=== PATIENT | male | born 1950 | race Caucasian/White ===

== ENCOUNTER 2019-01-20 09:30 | Outpatient (CLI) | payer MEDICARE, SELFPAY ==
--- NOTE | 2019-01-20 08:30 | DI.RAD_ITS ---
EXAM: XR ANKLE LT 2V INDICATION: ANKLE PAIN. COMPARISON: XR ANKLE RT 2V from 01/20/2019 TECHNIQUE: 2D digital imaging was performed. FINDINGS: There are moderately severe degenerative changes involving the mortise joint. There is no evidence o f a fracture or dislocation.
--- NOTE | 2019-01-20 08:30 | DI.RAD_ITS ---
EXAM: XR ANKLE RT 2V INDICATION: ANKLE PAIN. COMPARISON: LEFT ANKLE 2 VIEW from 02/25/2016 TECHNIQUE: 2D digital imaging was performed. FINDINGS: Mild degenerative changes involving the mortise joint is demonstrated. There is no evidence of a fra cture or dislocation.
== END 2019-01-20 09:50 ==
PROVIDERS: PCP Internal Medicine; Referring Provider Internal Medicine; Visit Provider Student in an Organized Health Care Education/Training Program
DX: M25.571 Pain in right ankle and joints of right foot (principal); M19.071 Primary osteoarthritis, right ankle and foot; M25.572 Pain in left ankle and joints of left foot; M19.072 Primary osteoarthritis, left ankle and foot; M24.271 Disorder of ligament, right ankle; M24.272 Disorder of ligament, left ankle
CPT/HCPCS: 99213; 73600; L1902

== ENCOUNTER → 2019-10-07 10:51 | Outpatient (BNVA) | payer MEDICARE, SELFPAY | PROVIDERS: PCP Internal Medicine; Referring Provider Internal Medicine; Visit Provider Surgery | DX: K58.9 Irritable bowel syndrome, unspecified (principal); Z12.11 Encounter for screening for malignant neoplasm of colon; K62.89 Other specified diseases of anus and rectum | CPT/HCPCS: 99202; 99214 ==

== ENCOUNTER 2019-10-12 01:25 | Outpatient (CLI) | payer MEDICARE, SELFPAY ==
[2019-10-12 08:16] LABS: Abs Immature Grans 0.01 k/cumm (0.0-0.09); Absolute Basophil Count 0.01 k/cumm (0.0-0.2); Absolute Eosinophil Count 0.14 k/cumm (0.0-0.7); Absolute Lymphocyte Count 2.31 k/cumm (1.2-3.4); Absolute Monocyte Count 0.58 k/cumm (0.11-0.7); Absolute Neutrophil Count 3.18 k/cumm (1.2-6.7); Basophils % 0.2; Eosinophils % 2.2; HCT 45.7 % (40.0-50.0); HGB 15.5 g/dL (13.5-17.5); Immature Grans % 0.2 %; Lymphocytes % 37.1; Mean Corp. HGB Concentration 33.9 g/dL (32.0-36.0); Mean Corpuscular Volume 88.4 fL (80-95); Mean Platelet Volume 10.9 fL (8.0-11.0); Monocytes % 9.3; Platelet Count 234 x1000/uL (130-400); RBC 5.17 m/cumm (4.50-6.00); RBC Distribution Width 13.3 % (11.8-14.1); White Blood Cell Count 6.23 k/cumm (4.4-10.8)
[2019-10-12 09:21] LABS: C-Reactive Protein 0.09 mg/dL (0.0-0.3)
== END 2019-10-12 01:45 ==
PROVIDERS: PCP Internal Medicine; Visit Provider Surgery
DX: K58.9 Irritable bowel syndrome, unspecified (principal); K62.89 Other specified diseases of anus and rectum; Z12.11 Encounter for screening for malignant neoplasm of colon
CPT/HCPCS: 36415; 85025; 86140

== ENCOUNTER 2019-11-07 06:11 | Day surgery (SDC) | payer MEDICARE, SELFPAY ==
[2019-11-07 06:21] VITALS: BP 135/78; PULSE 85; RESP 16; TEMP 36.6; O2SAT 100
[2019-11-07] MEDS: Lactated Ringers 1,000 ML 80 ML IV (06:49)
--- NOTE | 2019-11-07 07:39 | W.PM.HP.N ---
Date of service: 11/07/19 Time of Service: 07:39 Assessment and Plan Assessment and plan (1) Rectal pain: Status: Acute Assessment and plan: Patient is a longstanding history of irritable bowel syndrome. He is never had a colonoscopy before. He has no changes in bowel habits and changes in bowels. No bleeding. He is also having a significant amount of rectal pain is here today for colonoscopy. Cortisone acetate explained risk and benefits of procedure including bleeding infection perforation aspiration and complications of anesthesia he is stable for the procedure today. All questions were answered to patient satisfaction. (2) Elevated blood pressure reading without diagnosis of hypertension: Status: Acute (3) Irritable bowel syndrome: Status: Chronic (4) Colon cancer screening: Status: Acute History of Present Illness Consults Consult date: 11/07/19 Narrative: [facility] PATIENT NAME: MARTHA YOUSIF #: [id number] ADMITTING PROVIDER: Janie Brady #: [id number] PRIMARY CARE PROVIDER:SONIA VO MD DATE OF ADMIT: 10/07/19 : 1950 Assessment & Plan (1) Irritable bowel syndrome: Orders: C-Reactive Protein 10 Days Complete Blood Count w/Diff 10 Days (2) Colon cancer screening: Plan: Colonoscopy w/ MAC The patient will be scheduled by my office. The pt understands that they need to do a bowel prep and the importance of hydration during this. The patient understands there is a theoretical risk of renal failure. For healthy patients we use Gatorade/Miralax Prep. For anyone with renal concerns- GoLytely will be used. Plavix and Coumadin will need to be held except in unusual circumstances. Patients in A. Fib do not need to be bridged with Lovenox, or on CVA prophylaxis. A baby ASA can be continued but full dose ASA needs to be stopped for 10 days prior to the procedure. A complete H & P is required within 30 days of the procedure. MAC is used for the colonoscopy. Colonoscopy does not require antibiotics prophylaxis. Risks: Informed consent is obtained for the procedural (explained in simple layman's terms that the pt and/or family could understand) explaining risks vs benefits and alternatives to the procedure and consequences if we do not do the procedure and need/rational for the procedure. Risks include but are not limited to: bleeding, infection, perforation of colon. This would necessitate emergency surgery to repair the damage w/ possible ostomy; and other associated complications w/ the required surgery. Also complications of anesthesia including, but not limited to: aspiration, FL/CVA/. MAC does require an H & P within 30 days of the procedure. I discussed with the patient would they could expect during the procedure, post procedure and recovery time and risks. The patient understands that they need to have a ride home after the procedure. The patient was given all this information in writing and expressed understanding. Thank you for allowing me to participate in the care of this patient. A copy of the Endoscopy report will be forwarded to your office. If there are any questions or concerns please feel free to contact my office CARDIAC CONDITION HIGH RISK MODERATE RISK LOW RISK Prosthetic heart valves including bioprosthetic and homograft valves X Prior history of IE X Complex cyanotic congenital heart diseases such as single ventricle states, transpostion of the great arteries, and tetralogy of Fallot X Surgically constructed systemic or pulmonary conduits X Cc: PCP Orders: C-Reactive Protein 10 Days Complete Blood Count w/Diff 10 Days (3) Rectal pain: Orders: C-Reactive Protein 10 Days Complete Blood Count w/Diff 10 Days HPI pt has done FODMAP diet. pt was a long standing Vegan. this has been going on for the last 2 yrs. About 1.5m ago- pt started developed severe pain and blodding. He notes pain in rectum. changed in his bowels. He notes he cannot have a BM. He notes his bowels are ribbon like and hving hard time passing his stools. Hw does have a huge hx of OBS in the family. He has started on a fiber product. He is more constipation prone. He normally went twice a day wehn he was younger. lately he notes constipation adn pain adn difficulty having a bm. He stopped driking ETOH 6yrs ago. pt denies wt loss. no blood. his s/s have improved somewhat. the severe pain has improved. Pt seen at the request of PCP regarding colon cancer screening. Pt has never had a colon cancer screening before. Denies problems with constipation, diarrhea. No pain or difficulty with bowel movements. Denies rectal bleeding. There is no family history of any colon cancer. Pt has not had any weight loss. Their appetite is good. No heart, lung, or kidney problems. No heartburn or indigestion. No prior colo-rectal surgery. No prior prostate. No problems with anesthesia in the past. none smoker. Patient has a history of: DM: no CVA/FL: no CPAP use: no Blood thinners: no Kidney disease: no Patient needs to be MAC because of: Medical conditions/airway control Pain control Meds/NKDA/PMHx/PSHx: see [employer] ROS: 4 point ROS neg other than the symptoms noted above in the HPI. Review of Systems Const: All systems are reviewed & are unremarkable except as noted in HPI and below pt is here today for CE. no change since was seen in office. complete prep. clear yellow fluids No chest pain or shortness of breath today. No abdominal pain. No COVID symptoms or exposure that he is aware of. He has not been in the ER for any accidents. No changes in health status since last I saw him. No changes in his medications. All questions answered and stable for procedure Review of Systems Narrative: Four-point review of systems is done. Patient is asymptomatic today. Stable. He has PFSH Medical History Rectal pain (Acute) Surgical History Hand surgery Family History Mother Diabetes Father Heart disease Myocardial infarction Social History Smoking/Tobacco Use Status: Former Tobacco Use Quit Date: 03/30/99 Alcohol Intake: never Drug use: Never Substance use type: does not use Do you feel safe at home: Yes Do you feel safe in your relationship?: Yes Meds Home Medications and Allergies Home Medications Medication Instructions Recorded Confirmed Type Echinacea 1x 1 - 3 ml PO DAILY PRN 08/16/13 11/03/19 History [place] Solidago 1 - 3 ml PO/SL DAILY PRN 08/16/13 11/03/19 History Spilanthes Acmella 1 ml PO/SL DAILY PRN 08/16/13 11/03/19 History bisacodyl 5 mg tablet,delayed 5 mg PO ONCE #4 tab 10/12/19 11/07/19 Rx release polyethylene glycol 3350 17 238 g PO ONCE #238 gm 10/12/19 11/07/19 Rx gram/dose oral powder Allergies Allergy/AdvReac Type Severity Reaction Status Date / Time No Known Allergies Allergy Unverified 11/03/19 12:06 Exam Eyes Other: No jaundice. No eye pain or discharge. No. No dehydration. He has to wear glasses to see if. Cardio Rate: regular rate Rhythm: regular rhythm Other: No blood thinners GI Inspection: normal to inspection Palpation: soft and nontender Auscultation: normal bowel sounds Extrem General: normal to inspection, full ROM and no clubbing, cyanosis or edema Results Last Vital Signs Temp 36.6 C 11/07/19 06:21 Pulse 85 11/07/19 06:21 Resp 16 11/07/19 06:21 BP 135/78 11/07/19 06:21 Pulse Ox 100 11/07/19 06:21 COVID-19 Screening Have you,or household,traveled outside [place] in last 14 days?: No Had IN PERSON contact w/suspected or confirmed C-19 person: No
--- NOTE | 2019-11-07 07:55 | BOWEL_PTH ---
PATIENT: Roland Betancourt LOC: [facility] U#:[id number] AGE/SX: 65/M ROOM: RE11/07/[address]: Janie Brady : 11/07/1953 BED: DIS: 11/07/2019 SPEC #: [id number] RECD: 11/07/19 12:25 STATUS: JACQUELINE REQ #: [id number] STEPHANIE: 11/07/19 07:[address]: Janie Brady DEPT: Surgical Specimen RECD BY: Silvana Barth ENTERED: 11/07/19 12:26 SP TYPE: Bowel OTHR DR: Rere Burton MD Tissues: 1 - BIOPSY BOWEL 2 - BIOPSY BOWEL 3 - BIOPSY BOWEL Procedures: GROSS AND MICRO LEVEL 4 Comments: [id number]
--- NOTE | 2019-11-07 08:30 | W.COLOREPORT ---
Date of service: 11/07/19 Time of Service: 08:31 Colonoscopy Report Date of procedure: 11/07/19 Pre-op diagnosis general: rectal pain/IBS/screening Post-op diagnosis procedure note: other (polyps ) Procedure: CE and polypectomy x2 Surgeon: Janie Brady Anesthesia proc note operative: MAC Estimated blood loss (mL): 1 Pathology: other Complications: None Disposition: same day Prep: Miralax/Dulcolax Procedure Description: After informed consent was obtained the patient was taken to the procedure room and placed in a left decubitous position. Monitors were applied and a time out was done. The patients name, date of , procedure, allergies to medications and metal in their body was reviewed. The patient was then sedated. Once sedated and comfortable a rectal exam was done. External exam was normal. Internal exam revealed a normal sphincter tone and no palpable masses. The prostate nl. The scope was then introduced and retrofelexed. no internal hemorrhoids were identified. The scope was then advanced to the cecum w/out difficulty. The TI and appendiceal orifice were identified. The prep was good. The scope was then slowly retracted over 12 minutes back into the rectum. Polyps were removed at 20cm- small cluster of 2-3, most likely hyperplastic. Small adeno in the rectal removed w/ cold forcept. all all specimens are retrieved and no bleeding is noted. There is no diverticuli or AVMs apparent. The mucosa is pink and healthy. The scope was removed and the patient was woken up and taken back to Same day surgery in stable condition. The patient tolerated the procedure well and there were no immediate complications. Follow up: The patient should follow up in 10 years unless they develop changes in bowel habits or other new gastrointestinal complaints.
--- NOTE | 2019-11-07 08:38 | W.PM.DSUDISC ---
Discharge Plan Disposition Patient Disposition: HOME Condition: Good Discharge Details Reason For Visit: colon scope Attending Provider: Janie Brady Primary Care Provider: Rere Burton Home Meds and New Rx's Prescriptions: Continued Echinacea 1x 48.75 ML liquid 1 - 3 ml PO DAILY PRNRF: 0 [place] solidago 1 - 3 ml PO/SL DAILY PRNRF: 0 spilanthes acmella 1 ml PO/SL DAILY PRNRF: 0 Discontinued polyethylene glycol 3350 17 gram/dose powder 238 g PO ONCE Qty: 238 RF: 0 bisacodyl [Dulcolax (bisacodyl)] 5 mg tablet,delayed release (DR/EC) 5 mg PO ONCE Qty: 4 RF: 0 Discharge Instructions Additional Instructions: Findings:x2 small polyps. WIll send a letter om 2-3 wks w/ results of the polyps adn when to repeat the scope. Follow up: repeat scope in 5 -10 yrs Please call if you develop: fevers >101.5 Nausea or Vomiting Abdominal pain that is not transient DAY SURGERY UNIT POST COLONOSCOPY INSTRUCTIONS 1. Because there will be medication in your system for the next 24 hours, you may feel a little sleepy. Your coordination will be affected. Therefore: a. Do not drive or operate dangerous equipment for 24 hours. b. Do not drink alcohol beverages for 24 hours (not even beer). c. Plan to go home and rest for the day. 2. Generally there are no restrictions on your activity after a day or so has gone by, but you may feel a bit fatigued for a few days. 3 After you arrive home you may have a light meal and return to a normal diet as you can tolerate it without feeling sick to your stomach. 4. After surgery, you may feel pain or discomfort. This should be only transient, but if it persists please contact your doctor. 5. If there are any questions regarding the findings of your procedure, please feel free to contact your doctor. 6. If you are unable to contact your doctor with a problem, contact the hospital at [phone]. 7. Continue all your regular medications unless directed otherwise. I understand the above instructions and have no questions. Signature of Patient or Responsible Adult Escort Date/Time Name of Responsible Adult Escort Signature of Nurse Date/Time Activity:: No lifting over 20 pounds or strenuous activity x24 hours Diet:: Small light meals x24 hours Discharge Orders Discharge Orders: Discharge Order (Routine); Ordered 11/07/19 Ordered By: Janie Brady DS: Diagnosis Discharge Diagnosis (1) Rectal pain: Status: Acute (2) Elevated blood pressure reading without diagnosis of hypertension: Status: Acute (3) Irritable bowel syndrome: Status: Chronic (4) Colon cancer screening: Status: Acute
[2019-11-07 08:49] VITALS: BP 140/76; PULSE 63; RESP 16; TEMP 36.2; O2SAT 98
== END 2019-11-07 09:05 | disposition home or self-care (01) ==
PROVIDERS: PCP Internal Medicine; Visit Provider Surgery
PROC: 0DJD8ZZ Inspection of Lower Intestinal Tract, Via Natural or Artificial Opening Endoscopic (ICD-10-PCS; CPT 45378; principal; 2019-11-07 07:30)
DX: Z12.11 Encounter for screening for malignant neoplasm of colon (principal); R03.0 Elevated blood-pressure reading, without diagnosis of hypertension; K58.9 Irritable bowel syndrome, unspecified; K62.89 Other specified diseases of anus and rectum; K63.5 Polyp of colon; D12.8 Benign neoplasm of rectum
CPT/HCPCS: 45380; 88305; NC; J2001

== ENCOUNTER 2020-03-16 03:33 | Outpatient (CLI) | payer MEDICARE, SELFPAY ==
[2020-03-16 09:17] LABS: Anion Gap 6.6 mmol/L (3-11); BUN 19 mg/dL (7-18); CO2 28.4 mmol/L (21.0-32.0); CREATININE 1.13 mg/dL (0.70-1.30); Calculated LDL 120 mg/dL (<100); Chloride 107 mmol/L (98-107); Cholesterol 210 mg/dL (<200); Glucose 103 mg/dL (74-106); HDL Cholesterol 68 mg/dL (40-60); Potassium 4.5 mmol/L (3.5-5.1); Sodium 142 mmol/L (136-145); Triglyceride 113 mg/dL (<150)
== END 2020-03-16 03:53 ==
PROVIDERS: PCP Internal Medicine; Visit Provider Internal Medicine
DX: Z13.6 Encounter for screening for cardiovascular disorders (principal); Z83.3 Family history of diabetes mellitus; Z13.1 Encounter for screening for diabetes mellitus
CPT/HCPCS: 36415; 80048; 80061

== ENCOUNTER 2021-08-05 14:04 | Emergency (ER) | payer MEDICARE, SELFPAY ==
[2021-08-05] VITALS (12 sets, daily range): BP systolic 116–159; BP diastolic 65–88; PULSE 81–94; RESP 8–23; TEMP 36.6–36.8; O2SAT 96–99
--- NOTE | 2021-08-05 14:30 | DI.RAD_ITS ---
Exam(s) XR SOFT TISSUE NECK EXAM: XR SOFT TISSUE NECK CLINICAL HISTORY: intermittent laryngospasm, portable please. TECHNIQUE: 2D digital imaging was performed. COMPARISON: No exams were available for comparison FINDINGS: BONES: No acute fracture is present. Degenerative changes of the discs and facet joints. SOFT TISSUE:Airway is patent without radiopaque foreign body. Epiglottis is not enlarged. Prevertebra l soft tissues appear unremarkable. IMPRESSION: Unremarkable radiographs of soft tissue neck. DATA REPOSITORY: RADIATION DOSE DELIVERED:
[2021-08-05] MEDS: Dexamethasone 10 MG/ML VIAL IVP (14:36)
[2021-08-05 14:50] LABS: Abs Immature Grans 0.04 10^3/uL (0.0-0.06); Absolute Basophil Count 0.03 10^3/uL (0.0-0.2); Absolute Eosinophil Count 0.06 10^3/uL (0.0-0.7); Absolute Lymphocyte Count 1.37 10^3/uL (1.2-3.4); Absolute Monocyte Count 0.95 10^3/uL (0.1-0.8); Absolute Neutrophil Count 7.76 10^3/uL (1.2-6.7); Basophils % 0.3; Eosinophils % 0.6; HGB 14.1 g/dL (13.5-17.5); Immature Grans % 0.4; Lymphocytes % 13.4; MCH 29.8 pg (27.0-33.0); MCHC 32.8 % (32.0-36.0); MCV 91 fL (80-95); MPV 10.5 fL (8.0-11.0); Monocytes % 9.3; Platelet Count 206 10^3/uL (130-400); RBC 4.73 10^6/uL (4.36-5.78); RDW 12.3 % (11.8-14.1); RDW-SD 41.1 fL; WBC 10.21 10^3/uL (4.4-10.8)
[2021-08-05] MEDS: EPINEPHrine for Inhalation 0.5 ML VIAL UPD (15:00)
[2021-08-05] MEDS: Normal Saline Flush 10 ML SYR IVP (15:00)
[2021-08-05 15:05] LABS: ALT 50 U/L (16-63); AST 34 U/L (15-37); Albumin 3.7 g/dL (3.4-5.0); Alkaline Phosphatase 60 U/L (46-116); Anion Gap 8.3 mmol/L (3-11); BUN 18 mg/dL (7-18); Bilirubin, Total 0.5 mg/dL (0.2-1.0); CO2 25.7 mmol/L (21.0-32.0); Calcium 8.8 mg/dL (8.5-10.1); Chloride 99 mmol/L (98-107); Glucose 113 mg/dL (74-106); Sodium 133 mmol/L (136-145); Total Protein 7.7 g/dL (6.4-8.2)
[2021-08-05] MEDS: Normal Saline 1,000 ML 1000 ML IV (15:07)
--- NOTE | 2021-08-05 16:15 | ECONE_ITS ---
History of Present Illness History of Present Illness Chief Complaint: Intermittent laryngospasm Narrative: The patient is here with his significant other today. He is a non-smoker, and does not use marijuana. He notes that he has had intermittent minor episodes of laryngospasm in the past, but since 9:00 this morning has had 6 episodes of significant laryngospasm without loss of consciousness. It takes approximately 4 to 6 minutes for his symptoms to clear completely. He notes that when they occur, he will feel as though there is phlegm in his throat, and he cannot breathe. He cannot phonate at the time. He has gotten up and walked around with ease, trying to find a position in which she can breathe. He has not had any loss of consciousness. He notes no recent change in medications or supplements. He notes no unusual food intake. He denies any known insect or spider ingestion. He notes no hemoptysis, hematemesis, dysphagia, odynophagia, weight loss, or weight gain. He notes no heartburn or sour brash. He notes that he does feel as though he has some degree of postnasal drip. Assessment and Plan Assessment and plan (1) Laryngospasm: Status: Acute Assessment and plan: The patient is describing intermittent laryngospasms with no obvious cause within the head and neck. I reviewed the findings with Dr. Ocampo. Her plan is to admit him overnight for observation. We did discuss how to break laryngospasm. I also discussed this at length with the patient. I do not see a role for intubation at this point in time. He may follow-up with me as needed. He is aware he needs dental work. I do not see a role for any other imaging studies at this point in time. He is not describing aspiration. 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 Lateral and medial meniscal tears. 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 Impaired fasting glucose (Acute 08/16/13) Hallux limitus of left foot (Acute 01/29/15) Armando Gonzalez: with end stage arthrosis, hammertoe deformities, metadductus foot type Family history of diabetes mellitus (Acute 08/16/13) Medical History Rectal pain Surgical History Hand surgery History of colonoscopy (~11/07/19) Family History Mother Diabetes Father Heart disease Myocardial infarction Social History (Updated 03/13/20 @ 13:31 by Cee Simms LPN) Smoking/Tobacco Use Status: Former Tobacco Use Quit Date: 03/30/99 Smoking risk assessment performed?: Yes Alcohol Intake: never Drug use: Never Substance use type: does not use Household members: spouse and children Number of Children: 2 number of grandchildren: 3 Communication Needs: Corrective Lenses Education Level: other Details: PHD 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 His articulation is superb. His projection is excellent. He does not appear in any discomfort. He is not sniffling. He is breathing comfortably through his nose. [facility] Head: normal to inspection Ears: external ears normal and TM's normal bilaterally General nose exam: external nose normal, nasal mucous membranes and turbinates normal (No edema or erythema, no allergic mucin, no retained secretions), septum normal (Mildly deviated) and no nasal discharge noted Face and sinus: normal facial exam and sinuses nontender Mouth: oral mucosae normal, tongue normal (No edema or erythema) and oropharynx normal (1+ tonsils, uvula not edematous or elongated or erythematous) Teeth and gingiva: poor dentition Throat: posterior oropharynx normal, tonsils normal (1+, symmetric), no perito nsillar masses, no postnasal drainage and no uvular edema Other: I cannot adequately visualize his larynx or hypopharynx with a mirror secondary to gag reflex Neck Neck: normal visual inspection, full ROM, trachea midline, no anterior neck swelling, no lymphadenopathy noted and No submandibular swelling Thyroid: thyroid normal and nontender Lymphatic: no lymphadenopathy noted Other: Laryngeal crepitance is preserved. The larynx rises and falls normally with swallow. There is no neck tenderness. Resp Auscultation: clear to auscultation bilaterally, normal I/E ratio, no rhonchi and no wheezes Cardio Rate: regular rate Rhythm: regular rhythm Skin Other: Normal across the head and neck Neuro Cranial Nerves: CN's II-XI intact bilaterally Extrem Other: Mildly arthritic Results Last Vital Signs Temp 36.8 C 08/05/21 14:32 Pulse 94 H 08/05/21 15:16 Resp 11 L 08/05/21 15:16 BP 116/84 08/05/21 15:16 Pulse Ox 96 08/05/21 15:07 Labs Result diagrams: 08/05/21 14:45 08/05/21 14:45 Labs: Laboratory Results - last 24 hr 08/05/21 08/05/21 08/05/21 14:45 14:45 14:45 WBC 10.21 RBC 4.73 Hgb 14.1 Hct 43.0 MCV 91 MCH 29.8 MCHC 32.8 RDW 12.3 Plt Count 206 MPV 10.5 Immature Gran % 0.4 Neutrophils % 76.0 Lymphocytes % 13.4 Monocytes % 9.3 Eosinophils % 0.6 Basophils % 0.3 Nucleated RBC % 0.0 Absolute Neutrophils 7.76 H Absolute Lymphocytes 1.37 Absolute Monocytes 0.95 H Absolute Eosinophils 0.06 Absolute Basophils 0.03 PT 10.0 INR 1.0 Sodium 133 L Potassium 4.0 Chloride 99 Carbon Dioxide 25.7 Anion Gap 8.3 BUN 18 Creatinine 1.0 Estimated GFR/1.73 m2 >= 60.00 Glucose 113 H Calcium 8.8 Total Bilirubin 0.5 AST 34 ALT 50 Alkaline Phosphatase 60 Total Protein 7.7 Albumin 3.7 Imaging Additional studies: Flexible laryngoscopy: I reviewed the findings with the patient and his significant other. I recommended flexible laryngoscopy. Verbal consent was obtained. The patient was then prepped and draped in appropriate fashion. A flexible laryngoscope was carefully introduced in the nasal cavity, and advanced to the nasopharynx which appeared unremarkable. Adenoids demonstrated no inflammation. There were no masses or lesions. There is no Tornwaldt cyst. The scope was then advanced into the oropharynx which again appeared unremarkable. The uvula did not demonstrate any masses or lesions. The tongue base was unremarkable. The vallecula is unremarkable with no retained secretions. The posterior pharyngeal wall is unremarkable. Hypopharynx reveals no masses or lesions. There is no evidence of laryngopharyngeal reflux. There are no retained secretions. There is no particulate matter. Laryngeal exam reveals a normal-appearing epiglottis, and supraglottis. The true vocal cords are bilaterally symmetric with no masses or lesions. There is no edema or erythema. There are no polyps or nodules. The arytenoids and interarytenoid space are unremarkable with no polyps, masses, or erythema or edema. There are no retained secretions. The subglottis appears normal.
[2021-08-05 16:51] LABS: Influenza A PCR Negative (Negative); Influenza B PCR Negative (Negative); RSV PCR Negative (Negative)
[2021-08-05 16:57] LABS: COVID-19 PCR Positive (Negative); Source Nasopharynx
--- NOTE | 2021-08-05 17:15 | W.ED.GENAD ---
Discharge Plan Disposition Patient Disposition: AGAINST MEDICAL ADVICE Condition: Improving Discharge Details Clinical Impression: Laryngospasm, COVID-19 Primary Care Provider: Rere Burton ED Provider: Vivian Ocampo Home Meds and New Rx's Prescriptions: New Paxlovid (EUA) 150 mg x 2- 100 mg tablet See Rx Instructions .ROUTE .COMPLEX Qty: 10 0RF Rx Instructions: take TWO 150 mg tablets of nirmatrelvir with ONE 100 mg tablet of ritonavir twice daily for 5 days No Action Natural Fiber Supplement 6 gram/6 gram powder 1 tbs PO DAILY 0RF Rx Instructions: mix into at least 8 oz of water or juice before administering Echinacea 1x 48.75 ML liquid 1 - 3 ml PO DAILY PRN0RF Label Comments: homeopathic goldenrod solidago 1 - 3 ml PO/SL DAILY [id number] Label Comments: homeopathic spilanthes acmella 1 ml PO/SL DAILY PRN0RF Label Comments: homeopathic Discharge Instructions Additional Instructions: You have elected to leave the emergency department AGAINST MEDICAL ADVICE. As we discussed, the risks of doing so are or permanent disability. You may return to emergency department anytime if you change your mind. Please return immediately to the emergency department if you develop any new or worsening symptoms, if your condition does not improve as expected, or if you become otherwise concerned. It is extremely important that you call soon as possible to make an appointment to be seen in follow-up for this visit by your primary care doctor. Referrals: Rere Burton MD [Primary Care Provider] - Discharge Data Discharge Date/Time-TO BE ENTERED AT DEPARTURE: 08/05/21 17:15 Medical Decision Making Pt reports that since this morning he had 4 episodes during which he feels that he cannot breath. Pt reports that he gets a sensation of sinus drainage and fullness in his throat, followed by a sensation that his throat is closed and that he cannot breathe at all. He reports that episodes have lasted from 3-6 minutes or so. Pt reports that he has at times in the past had very mild similar sensation, but has never had severity like today. Pt reports no known triggers. Feels quite well and in his usual state of health otherwise and in between episodes. Normal voice in between episodes. Denies trauma, swelling, itching, any pain, fevers, cough, other SOB, vomiting, diarrhea, numbness, weakness, rash. Denies allergies. Denies new exposures, medication/supplement changes. Has been eating today without issue. No difficulty swallowing. No known snoring per Pt's . On initial exam stridor with extremis, which resolved spontaneously. Thereafter Pt well and non-toxic appearing. No apparent oropharyngeal abnormality, no abnormality of the neck. Posterior pharynx not well visualized. Concern for apparent vocal cord spasm vs uvulitis vs epiglottitis vs foreign body vs other, less likely allergic process/angioedema given episodic nature. Exam/hx at this time not c/w sepsis, pulmonary embolism, PNA, acute coronary syndrome. Plan for nebulized epinephrine, IV placement, dexamethasone, screening labs, telemetry, portable soft tissue neck xray. Respiratory therapy at bedside, set-up for BVM and intubation for possible worsening. Holding IM epinephrine at this time. Pt with second episode of stridor in ED prior to receiving nebulized epinephrine, I was called to bedside emergently, episode had resolved upon my arrival. Pt reporting improvement in symptoms after receiving meds, states throat area feels more relaxed. ENT consulted for NPL. Dr. Oneill at bedside, performed NPL. States no abnormality on NPL, normal appearance of vocal cords, epiglottis, surrounding soft tissues. He states likely secondary to vocal cord spasm of unknown etiology. Agrees with medicine admission for observation. Pt stated to nursing that his son currently has covid. Will send covid test. Plan for admission. Covid +. Discussed plan with Pt. Pt states that he much prefers to go home. I had a lengthy discussion with Pt stating my concerns for risks of leaving AMA, including and permanent disability. Pt and his verbalized understanding of risks, Pt states that he does not want to hospitalized, will RTED immediately for worsening symptoms. I reiterated my recommendations for admission and stated risks. Pt refused admission. Discussed paxlovid, Pt is amenable. Plan for rx. Discussed covid precautions, laryngospasm precautions, and that he may RTED at any time if he changes his mind. Discussed with Pt and his return to emergency department precautions, home care, and importance of outpatient follow-up. Pt verbalizes understanding of the plan and is amenable. Patient discharged to home with clear plan for outpatient follow-up. All questions were answered. Disposition decision was made weighing the risks and benefits of hospitalization versus outpatient treatment, the risk for further decompensation, and the patient's wishes. Imaging Data Radiologic Study: Attestation: I personally reviewed and interpreted this imaging study as follows: Radiologist's impression: EXAM:? XR SOFT TISSUE NECK CLINICAL HISTORY: ? intermittent laryngospasm, portable please.? TECHNIQUE:? 2D digital imaging was performed. COMPARISON:? No exams were available for comparison FINDINGS: BONES: No acute fracture is present.? Degenerative changes of the discs and facet joints. SOFT TISSUE:Airway is patent without radiopaque foreign body. Epiglottis is not enlarged. Prevertebral soft tissues appear unremarkable. IMPRESSION: Unremarkable radiographs of soft tissue neck. Lab Data Lab results reviewed: Yes I reviewed the patient's lab results. Labs: Laboratory Tests Range/Units 08/05/21 08/05/21 08/05/21 14:45 14:45 14:45 WBC (4.4-10.8) 10^3/uL 10.21 RBC (4.36-5.78) 10^6/uL 4.73 Hgb (13.5-17.5) g/dL 14.1 Hct (40.0-50.0) % 43.0 MCV (80-95) fL 91 MCH (27.0-33.0) pg 29.8 MCHC (32.0-36.0) % 32.8 RDW (11.8-14.1) % 12.3 Plt Count (130-400) 10^3/uL 206 MPV (8.0-11.0) fL 10.5 Immature Gran % 0.4 Neutrophils % 76.0 Lymphocytes % 13.4 Monocytes % 9.3 Eosinophils % 0.6 Basophils % 0.3 Nucleated RBC % (0.0-0.3) % 0.0 Absolute Neutrophils (1.2-6.7) 10^3/uL 7.76 H Absolute Lymphocytes (1.2-3.4) 10^3/uL 1.37 Absolute Monocytes (0.1-0.8) 10^3/uL 0.95 H Absolute Eosinophils (0.0-0.7) 10^3/uL 0.06 Absolute Basophils (0.0-0.2) 10^3/uL 0.03 PT (9.3-11.0) sec 10.0 INR (0.9-1.1) 1.0 Sodium (136-145) mmol/L 133 L Potassium (3.5-5.1) mmol/L 4.0 Chloride (98-107) mmol/L 99 Carbon Dioxide (21.0-32.0) mmol/L 25.7 Anion Gap (3-11) mmol/L 8.3 BUN (7-18) mg/dL 18 Creatinine (0.70-1.30) mg/dL 1.0 Estimated GFR/1.73 m2 (mL/min/1.73m2) >= 60.00 Glucose (74-106) mg/dL 113 H Calcium (8.5-10.1) mg/dL 8.8 Total Bilirubin (0.2-1.0) mg/dL 0.5 AST (15-37) U/L 34 ALT (16-63) U/L 50 Alkaline Phosphatase (46-116) U/L 60 Total Protein (6.4-8.2) g/dL 7.7 Albumin (3.4-5.0) g/dL 3.7 COVID-19 Source SARS-CoV-2 (PCR) (Negative) Influenza Type A (PCR) (Negative) Influenza Type B (PCR) (Negative) RSV (PCR) (Negative) Range/Units 08/05/21 16:04 WBC (4.4-10.8) 10^3/uL RBC (4.36-5.78) 10^6/uL Hgb (13.5-17.5) g/dL Hct (40.0-50.0) % MCV (80-95) fL MCH (27.0-33.0) pg MCHC (32.0-36.0) % RDW (11.8-14.1) % Plt Count (130-400) 10^3/uL MPV (8.0-11.0) fL Immature Gran % Neutrophils % Lymphocytes % Monocytes % Eosinophils % Basophils % Nucleated RBC % (0.0-0.3) % Absolute Neutrophils (1.2-6.7) 10^3/uL Absolute Lymphocytes (1.2-3.4) 10^3/uL Absolute Monocytes (0.1-0.8) 10^3/uL Absolute Eosinophils (0.0-0.7) 10^3/uL Absolute Basophils (0.0-0.2) 10^3/uL PT (9.3-11.0) sec INR (0.9-1.1) Sodium (136-145) mmol/L Potassium (3.5-5.1) mmol/L Chloride (98-107) mmol/L Carbon Dioxide (21.0-32.0) mmol/L Anion Gap (3-11) mmol/L BUN (7-18) mg/dL Creatinine (0.70-1.30) mg/dL Estimated GFR/1.73 m2 (mL/min/1.73m2) Glucose (74-106) mg/dL Calcium (8.5-10.1) mg/dL Total Bilirubin (0.2-1.0) mg/dL AST (15-37) U/L ALT (16-63) U/L Alkaline Phosphatase (46-116) U/L Total Protein (6.4-8.2) g/dL Albumin (3.4-5.0) g/dL COVID-19 Source Nasopharynx SARS-CoV-2 (PCR) (Negative) Positive A Influenza Type A (PCR) (Negative) Negative Influenza Type B (PCR) (Negative) Negative RSV (PCR) (Negative) Negative HPI General Date/Time Provider Initiated Documentation: 08/05/21 14:31. HPI Narrative: Roland Betancourt is a 67 y/o man without reported h/o medical problems presents to the emergency department for shortness of breath. Of note, Pt initially arrived in exam room from waiting room in extremis with stridor, unable to vocalize. This resolved spontaneously after 2-3 minutes, Pt was then able to give full history as follows. Pt reports that since this morning he had 4 episodes during which he feels that he cannot breath. Pt reports that he gets a sensation of sinus drainage and fullness in his throat, followed by a sensation that his throat is closed and that he cannot breathe at all. He reports that episodes have lasted from 3-6 minutes or so. Pt reports that he has at times in the past had very mild similar sensation, but has never had severity like today. Pt reports no known triggers. Feels quite well and in his usual state of health otherwise and in between episodes. Normal voice in between episodes. Denies trauma, swelling, itching, any pain, fevers, cough, other SOB, vomiting, diarrhea, numbness, weakness, rash. Denies allergies. Denies new exposures, medication/supplement changes. Has been eating today without issue. No difficulty swallowing. No known snoring per Pt's . Related Data Home Medications Medication Instructions Recorded Confirmed Clear[place] Solidago 1 - 3 ml PO/SL DAILY PRN 08/16/13 11/03/19 Spilanthes Acmella 1 ml PO/SL DAILY PRN 08/16/13 11/03/19 echinacea (Echinacea 1x) 1 - 3 ml PO DAILY PRN 08/16/13 11/03/19 psyllium husk 6 gram/6 gram oral 1 tbs PO DAILY 11/23/19 11/23/19 powder (Natural Fiber Supplement) nirmatrelvir 150 mg x 2-ritonavir See Rx Instructions .ROUTE 08/05/21 100 mg tablet (EUA) (Paxlovid .COMPLEX #10 tab (EUA)) Previous Rx's Medication Instructions Recorded nirmatrelvir 150 mg x 2-ritonavir See Rx Instructions .ROUTE 08/05/21 100 mg tablet (EUA) (Paxlovid .COMPLEX #10 tab (EUA)) Allergies Allergy/AdvReac Type Severity Reaction Status Date / Time No Known Allergies Allergy Verified 07/02/21 08:34 General Stated Complaint: RespSymp YOUSIF: 2 Review of Systems Narrative: Constitutional: denies fevers Eyes: denies eye pain ENT: denies ear pain, dental pain, sore throat, voice change, drooling, difficulty swallowing, mouth/lip/throat swelling Cardiovascular: denies chest pain Respiratory: denies SOB, cough GI: denies abdominal pain, vomiting, diarrhea : denies flank pain MSK: denies back pain, neck pain, arthralgias, myalgias Skin: denies rash, itching Neuro: denies headaches, numbness, weakness PFSH All Active Problems (Updated 08/05/21 @ 17:13 by Vivian Ocampo MD) Laryngospasm (Acute) COVID-19 (Acute) Laryngospasm (Acute) Umbilical hernia without mention of obstruction or gangrene (Acute) Encounter for screening for coronary artery disease (Acute) Family history of diabetes mellitus in mother (Acute) Tubular adenoma (Acute) Rectal pain (Acute) Elevated blood pressure reading without diagnosis of hypertension (Acute) Irritable bowel syndrome (Chronic) Colon cancer screening (Acute) Ligamentous laxity of ankle (Chronic) Joint laxity of right knee (Acute 11/22/14) MRI: 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 Lateral and medial meniscal tears. 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 Impaired fasting glucose (Acute 08/16/13) Hallux limitus of left foot (Acute 01/29/15) Armando Carlos: with end stage arthrosis, hammertoe deformities, metadductus foot type Family history of diabetes mellitus (Acute 08/16/13) Medical History Rectal pain Surgical History Hand surgery History of colonoscopy (~11/07/19) Family History Mother Diabetes Father Heart disease Myocardial infarction Social History Smoking/Tobacco Use Status: Former Tobacco Use Quit Date: 03/30/99 Smoking risk assessment performed?: Yes Alcohol Intake: never Drug use: Never Substance use type: does not use Household members: spouse and children Number of Children: 2 number of grandchildren: 3 Communication Needs: Corrective Lenses Education Level: other Details: PHD 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 Sat on exam table with immediate improvement, gradual resolution over the next 5 minutes. Exam as follows thereafter. Constitutional: well and [id number], pleasant, conversing normally HENT: head atraumatic/normocephalic/normal inspection, mucous membranes moist, normal voice, no apparent oropahryngeal edema or erythema, unable to visualize posterior pharynx 2/2 mallampati, no apparent tongue edema, no tongue elevation, no drooling, no pooling of secretions Eyes: conjunctiva normal, sclera normal, pupils 3mm b/l Neck: no stridor, normal ROM, trachea midline Chest: normal inspection Resp: normal work of breathing, speaking in full sentences, LCTAB Cardio: normal rate, normal rhythm, no murmur appreciated Skin: warm, dry, normal color, no rash Neuro: alert, not altered, grossly non-focal, normal tone Ext: no edema, no posterior calf TTP Psych: normal mood, normal affect, normal behavior Course Vital Signs Vital signs: Vital Signs Temperature 36.8 C 08/05/21 14:32 Pulse 81 08/05/21 14:32 Respiratory Rate 23 08/05/21 14:32 Blood Pressure 159/88 H 08/05/21 14:32 Pulse Oximetry 97 08/05/21 14:32 Temperature 36.8 C 08/05/21 14:32 Temperature Source Temporal Artery Scan 08/05/21 14:32 Pulse 87 08/05/21 16:56 Pulse 86 08/05/21 16:56 Respiratory Rate 21 08/05/21 16:56 Respiratory Effort Non-Labored 08/05/21 15:14 Respiratory Depth Normal 08/05/21 15:10 Blood Pressure 123/67 08/05/21 16:56 Blood Pressure Mean 78 08/05/21 16:56 Blood Pressure Position Sitting 08/05/21 14:32 Pulse Oximetry 97 08/05/21 16:56 Oxygen Delivery Method Room Air 08/05/21 14:32 Oxygen Flow Rate 0 08/05/21 14:32 Pain Level 0 08/05/21 14:32 Lab/Test Results Lab/Test Results: Laboratory Tests Range/Units 08/05/21 08/05/21 08/05/21 14:45 14:45 14:45 WBC (4.4-10.8) 10^3/uL 10.21 RBC (4.36-5.78) 10^6/uL 4.73 Hgb (13.5-17.5) g/dL 14.1 Hct (40.0-50.0) % 43.0 MCV (80-95) fL 91 MCH (27.0-33.0) pg 29.8 MCHC (32.0-36.0) % 32.8 RDW (11.8-14.1) % 12.3 Plt Count (130-400) 10^3/uL 206 MPV (8.0-11.0) fL 10.5 Immature Gran % 0.4 Neutrophils % 76.0 Lymphocytes % 13.4 Monocytes % 9.3 Eosinophils % 0.6 Basophils % 0.3 Nucleated RBC % (0.0-0.3) % 0.0 Absolute Neutrophils (1.2-6.7) 10^3/uL 7.76 H Absolute Lymphocytes (1.2-3.4) 10^3/uL 1.37 Absolute Monocytes (0.1-0.8) 10^3/uL 0.95 H Absolute Eosinophils (0.0-0.7) 10^3/uL 0.06 Absolute Basophils (0.0-0.2) 10^3/uL 0.03 PT (9.3-11.0) sec 10.0 INR (0.9-1.1) 1.0 Sodium (136-145) mmol/L 133 L Potassium (3.5-5.1) mmol/L 4.0 Chloride (98-107) mmol/L 99 Carbon Dioxide (21.0-32.0) mmol/L 25.7 Anion Gap (3-11) mmol/L 8.3 BUN (7-18) mg/dL 18 Creatinine (0.70-1.30) mg/dL 1.0 Estimated GFR/1.73 m2 (mL/min/1.73m2) >= 60.00 Glucose (74-106) mg/dL 113 H Calcium (8.5-10.1) mg/dL 8.8 Total Bilirubin (0.2-1.0) mg/dL 0.5 AST (15-37) U/L 34 ALT (16-63) U/L 50 Alkaline Phosphatase (46-116) U/L 60 Total Protein (6.4-8.2) g/dL 7.7 Albumin (3.4-5.0) g/dL 3.7 COVID-19 Source SARS-CoV-2 (PCR) (Negative) Influenza Type A (PCR) (Negative) Influenza Type B (PCR) (Negative) RSV (PCR) (Negative) Range/Units 08/05/21 16:04 WBC (4.4-10.8) 10^3/uL RBC (4.36-5.78) 10^6/uL Hgb (13.5-17.5) g/dL Hct (40.0-50.0) % MCV (80-95) fL MCH (27.0-33.0) pg MCHC (32.0-36.0) % RDW (11.8-14.1) % Plt Count (130-400) 10^3/uL MPV (8.0-11.0) fL Immature Gran % Neutrophils % Lymphocytes % Monocytes % Eosinophils % Basophils % Nucleated RBC % (0.0-0.3) % Absolute Neutrophils (1.2-6.7) 10^3/uL Absolute Lymphocytes (1.2-3.4) 10^3/uL Absolute Monocytes (0.1-0.8) 10^3/uL Absolute Eosinophils (0.0-0.7) 10^3/uL Absolute Basophils (0.0-0.2) 10^3/uL PT (9.3-11.0) sec INR (0.9-1.1) Sodium (136-145) mmol/L Potassium (3.5-5.1) mmol/L Chloride (98-107) mmol/L Carbon Dioxide (21.0-32.0) mmol/L Anion Gap (3-11) mmol/L BUN (7-18) mg/dL Creatinine (0.70-1.30) mg/dL Estimated GFR/1.73 m2 (mL/min/1.73m2) Glucose (74-106) mg/dL Calcium (8.5-10.1) mg/dL Total Bilirubin (0.2-1.0) mg/dL AST (15-37) U/L ALT (16-63) U/L Alkaline Phosphatase (46-116) U/L Total Protein (6.4-8.2) g/dL Albumin (3.4-5.0) g/dL COVID-19 Source Nasopharynx SARS-CoV-2 (PCR) (Negative) Positive A Influenza Type A (PCR) (Negative) Negative Influenza Type B (PCR) (Negative) Negative RSV (PCR) (Negative) Negative
== END 2021-08-05 17:15 | disposition left against medical advice (07) ==
PROVIDERS: Emergency Provider Student in an Organized Health Care Education/Training Program; PCP Internal Medicine
DX: J38.5 Laryngeal spasm (principal); U07.1 COVID-19; Z53.29 Procedure and treatment not carried out because of patient's decision for other reasons
CPT/HCPCS: 31575; 80053; 87637; 94640; 96361; 96374; 99284; 70360; 85025; 85610; J1100

== ENCOUNTER → 2021-12-13 00:54 | Outpatient (CLI) | payer MEDICARE, SELFPAY ==
--- OUTSIDE RECORDS SUMMARY | 2021-12-13 00:55 | XMS_ITS | Encounter Summary ---
:11/07/1953 Author Organization [facility] Address [address] [place] [address] Care Team Providers Name Role Phone Rere Burton MD Primary Care Provider Encounter Details Date Type Department Care Team Description 11/07/2019 Lab Requisition [facility] Janie Brady for Pathology & M, DO screening for Laboratory Medicine - [address] neoplasm of [facility] [address] [place] [id number] Social History Tobacco Use Types Packs/Day Years Used Date Never Assessed Sex Assigned at Date Recorded Not on file documented as of this encounter Plan of Treatment Not on filedocumented as of this encounter Procedures Procedure Name Priority Date/Time Associated Diagnosis Comme nts SURGICAL PATHOLOGY Today 11/07/2019 7:55 EDT Encounter for R esults for this screening for procedure are in malignant neoplasm the resul ts of colon section. documented in this encounter Results SURGICAL PATHOLOGY (11/07/2019 7:55 EDT) Final Diagnosis A. COLON, 20 CM, POLYP, BIOPSY: [facility] - Hyperplastic polyp. [facility] B. RECTUM, BIOPSY: SERVICES - Rectal tissue with focal hyperplastic change. - Deeper sections examined x3. C. RECTUM, POLYP, BIOPSY: - Tubular adenoma. Attestation There was significant [facility] Electr onically resident/fellow CENTER signed by Ab adeel Molina involvement in the LABORATORY Spencer Sofia on diagnostic evaluation SERVICES 020 at 0938 of this case. By the signature below, the attending physician certifies that they have personally conducted a gross and/or microscopic examination of the described specimens and rendered or confirmed the above diagnosis. Clinical History Screening/IBS [facility] Gross Description A. [facility] Received in formalin robbie d with proper patient identification (initials L, T) and 20 cm polyp are 3 fragments of ramirez soft tissue (each averaging 0.3 x 0.2 x 0.2 cm). The specimen is entirely submitted in A1. [facility] B. SERVICES Received in formalin robbie d with proper patient identification (initials L, T) and rectal Bx is a single fragment of ramirez soft tissue (0.3 x 0.3 x 0.2 cm). The specimen is entirely submitted in B1. C. Received in formalin robbie d with proper patient identification (initials L, T) and rectal polyp is a single fragment of pink-ramirez soft tissue (0.4 x 0.2 x 0.2 cm). The specimen is entirely submitted in C1. Keesha Ching 11/07/2019 16:29 Resident/Fellow: See Marie, [facility] Performing Lab [facility] Scanned Images [facility] Specimen Tissue - Specimen from rectum (specimen) Tissue specimen (specimen) - Specimen fr om rectum (specimen) Tissue specimen (specimen) - Specimen fr om rectum (specimen) Performing Organization Address City/State/ZIP Code Phon e Number [facility] [address] [place] [address] SERVICES documented in this encounter Visit Diagnoses Diagnosis Encounter for screening for malignant ne oplasm of colon Special screening for malignant neoplasm s, colon documented in this encounter Care Teams Engineering Supplies Sales Relationship Specialty Start Date End Date Rere Burton MD PCP - General 10/29/[address] [place], [place] [id number] documented as of this encounter
--- OUTSIDE RECORDS SUMMARY | 2021-12-13 00:55 | XMS_ITS | Clinical Summary ---
:11/07/1953 Author Organization [facility] Address [address] [place] [address] Care Team Providers Name Role Phone Rere Burton MD Primary Care Provider Social History Tobacco Use Types Packs/Day Years Used Date Never Assessed Sex Assigned at Date Recorded Not on file Plan of Treatment Health Maintenance Due Date Last Done Comments Fall Risk Screening 11/07/2018 Insurance Payer Benefit Plan / Subscriber ID Effective Dates Phone Addre ss Type Group MEDICARE MEDICARE A/B [id number] 2018-Present [id number] [place] [id number] Rosas Betancourt Personal/Family Self 11/07/1953 [address] (Home) [place] [address] Rosas Betancourt Personal/Family Self 11/07/1953 [address] (Home) [place] [address] Rosas Betancourt Personal/Family Self 11/07/1953 [address] (Home) [place] [id number] Rosas Betancourt Personal/Family Self 11/07/1953 [address] (Home) [place] [id number] Care Teams Platform Builder Relationship Specialty Start Date End Date Rere Burton MD PCP - General 10/29/[address] [place] [id number]
--- NOTE | 2021-12-13 07:52 | DI.RAD_ITS ---
Exam(s) XR KNEE RT 3V AP,LAT,JOHN EXAM: XR KNEE RT 3V AP,LAT,JOHN CLINICAL HISTORY: Assess degree of OA R knee; decr function,djd rt knee,m17.11,pain. TECHNIQUE: 2D digital imaging was performed. COMPARISON: CR RIGHT KNEE 3 VIEWS from 02/25/2016 FINDINGS: Four views: There is no evidence of fracture. There does appear to be a joint effusion. There is [id number] n arrowing of the lateral compartment seen on the upright view. No narrowing of the medial compartment . Mild degenerative changes in the patellofemoral compartment. IMPRESSION: There is now advanced narrowing of the lateral compartment, with significant progression from 2016. DATA REPOSITORY: RADIATION DOSE DELIVERED:
== END ==
PROVIDERS: PCP Nurse Practitioner Adult Health; Visit Provider Nurse Practitioner Adult Health
DX: M17.11 Unilateral primary osteoarthritis, right knee (principal)
CPT/HCPCS: 73562

== ENCOUNTER → 2021-12-16 09:47 | Outpatient (BNVA) | payer MEDICARE, SELFPAY | PROVIDERS: PCP Nurse Practitioner Adult Health; Referring Provider Nurse Practitioner Adult Health; Visit Provider Surgery | DX: K42.9 Umbilical hernia without obstruction or gangrene (principal) | CPT/HCPCS: 99212 ==

== ENCOUNTER → 2022-07-07 10:23 | Outpatient (BNVA) | payer MEDICARE, BC, SELFPAY | PROVIDERS: PCP Nurse Practitioner Adult Health; Referring Provider Nurse Practitioner Adult Health; Visit Provider Surgery | DX: L57.0 Actinic keratosis (principal); K42.9 Umbilical hernia without obstruction or gangrene | CPT/HCPCS: 99212; 99213 ==

== ENCOUNTER 2022-08-19 06:15 | Day surgery (SDC) | payer MEDICARE, BC, SELFPAY ==
--- NOTE | 2022-08-18 12:42 | HPE_ITS ---
Date of service: 08/19/22 Time of Service: 07:25 Assessment and Plan Assessment and plan (1) Umbilical hernia without mention of obstruction or gangrene: Status: Acute Assessment and plan: Patient is here today for umbilical hernia repair. I discussed the nature of inguinal hernias with the pt and how they form, and consequences of incarceration.? We discussed the warning signs of incarcerations (Severe pain/hardness and inability to reduce the hernia/vomiting/redness and fever) ?and when/how to seek medical attention (our office/PCP or ED).? ?I discussed the surgery in detail and the complications related to the surgery and the anesthesia.? I do recommend that the pt have a nerve block for postop pain control.? We also discussed multi-modality pain management.? Pt. expressed und erstanding; all questions were answered to the patient satisfaction and they do wish to proceed with surgery.? Patient was given expressed understanding of how to care for themselves after surgery. Risks of the surgery include but are not limited to: Bleeding/infection/pneumonia/damage to blood vessels or bladder or?bowels/blood clots or PE/chronic pain/urinary retention/chronic numbness/reoccurrence/reaction to mesh requiring removal/complications of anesthesia.?We also discussed the possibility of postop urinary retention or bruising. ?The procedure will be done with abx and under sterile conditions. This is an outpt day surgery.? ??The pt requires a ride home from surgery and someone to stay with the pt for 24 hrs after anesthesia.? No lifting over 5 pounds for 2-3 weeks after surgery.? Also take Miralax postop to avoid constipation. Qualifiers: Obstruction and gangrene presence: without obstruction or gangrene Qualified Code(s): K42.9 - Umbilical hernia without obstruction or gangrene History of Present Illness Narrative: Today 08/19/22 pt is doing well. He is having : no headaches. No CP or SOB. no productive cough. no dysuria. no leg pain or swelling. There have been no changes in his hernia since I saw him last in the clinic. We have discussed what can he can expect during surgery, during the Recovery time, and the risks and benefits of surgery. Informed consent is obtained for the procedural (explained in simple layman's terms that the pt and/or family could understand) explaining risks vs benefits and alternatives to the procedure and consequences if we do not do the procedure. Risks include but are not limited to: bleeding, infections, pneumonia, blood clots/DVT/PE, anesthesia (aspiration, damage to teeth/airway/TN/CVA//prolonged mechanical ventilation/PTX/IV infections), damage to bowel, blood vessels. ?Scarring and disfigurement. Subsequent bowel obstructions from scar tissue.? Chronic pain or numbness from the incision, recurrence, reaction to mesh requiring removal. Clinic Visit 07/07 Pt has a 6cm umbilical hernia.? Pt Was on Schedule? to have this repaired in March.? He has had no problems w/ Anethesia Patient is here today to discuss having his umbilical hernia repaired.? He has had no surgery through this area before.? I do feel that this has gotten larger since last time we saw him.? It definitely interferes with his ability to do strenuous activities.? Patient is also planning [place] right [place] [facility] [place] [facility] I discussed with the patient that he is having mesh implanted.? To make sure to check with his orthopedic surgeon so that does not delay his knee surgery order so they can postpone his knee surgery. We did discuss hernias today we discussed repair.? Because of the size of the hernia mesh is definitely indicated to prevent recurrence.? We discussed risks and benefits of the procedure.? He was given a copy of postop instructions and what to plan for as far as postoperative cares. Risk factors for surgery include: Patient does not have problems with anesthesia in the past.? He does not have any lung disease.? He has never had a heart attack or stroke.? He does not smoke.? He is not diabetic.? He is within his ideal body weight. Review of Systems All systems reviewed & are unremarkable except as noted in HPI and below Constitutional Comments: No chest pain or shortness of breath. no cough/sore throat/or URT infection s/s PFSH All Active Problems Impaired fasting glucose (Chronic 08/16/13) Irritable bowel syndrome (Chronic) Elevated blood pressure reading without diagnosis of hypertension (Chronic) Tubular adenoma (Acute ~2019) Family history of diabetes mellitus in mother (Chronic) Umbilical hernia without mention of obstruction or gangrene (Acute ~06/2021) Degenerative joint disease of right knee (Acute ~11/2021) Actinic keratosis (Acute ~02/2022) [facility] [place]Destruction of lesions with cryo x14 Medical History Colon cancer screening COVID-19 Encounter for screening for coronary artery disease Hallux limitus of left foot (01/29/15) Armando Carlos: with end stage arthrosis, hammertoe deformities, metadductus foot type Joint laxity of right knee (11/22/14) MRI: 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 Lateral and medial meniscal tears. 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 Laryngospasm r/t to covid Ligamentous laxity of ankle Rectal pain Surgical History Hand surgery History of colonoscopy (~11/07/19) Family History Mother Diabetes Father Heart disease Myocardial infarction Social History Smoking/Tobacco Use Status: Former Tobacco Use Quit Date: 03/30/99 Smoking risk assessment performed?: Yes Alcohol Intake: never Drug use: Never Substance use type: does not use Household members: spouse and children Number of Children: 2 number of grandchildren: 3 Communication Needs: Corrective Lenses Education Level: other Details: PHD 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: , 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 Do you feel safe at home: Yes Do you feel safe in your relationship?: Yes Meds Allergies and Home Medications Allergies Allergy/AdvReac Type Severity Reaction Status Date / Time No Known Allergies Allergy Verified 08/19/22 06:28 Home Medications Medication Instructions Recorded Confirmed Type [place] Solidago 1 - 3 ml PO/SL DAILY PRN 08/16/13 08/18/22 History Spilanthes Acmella 1 ml PO/SL DAILY PRN 08/16/13 07/09/22 History psyllium husk 6 gram/6 gram oral 1 tbs PO DAILY 11/23/19 08/19/22 History powder (Natural Fiber Supplement) tumeric 100 mg-omero 150 mg-olive 1 cap PO TID 12/16/21 08/19/22 History 50 mg-oreg 150 mg-caprylate capsule Exam Narrative Exam Narrative: PHYSICAL EXAM GENERAL APPEARANCE: Alert, healthy appearance, oriented, x 3,? in no acute distress HYDRATION: Well hydrated HEAD, EYES, EARS, NECK, THROAT: Head is normocephalic, pupils equal, round, reactive to light and accommodation, ocular movement intact, sclera clear and no jaundice. ?Dentition intact. No sore throat. LUNGS: normal respiration/normal chest excursion. ?Clear to auscultation bilaterally. ?No wheeze. ?HEART: Regular rate and rhythm. no murmurs EXTREMITY: No edema or cyanosis.? no leg pain, redness, swelling.? atrophy left hand ABDOMEN: soft and non-tender to palpation.? Normal bowel sounds.? 6cmumbilical hernia Time Spent Time spent with Patient: <40 minutes Time was spent: preparing to see the patient(eg.review tests), obtaining and/or reviewing separately otained hiistory, ordering medications,tests, procedures, referring, communicating with other health congregational care pastor, indepentently interpreting results, counseling the patient and care coordination
--- NOTE | 2022-08-18 19:32 | W.PM.DSUDISC ---
Date of service: 08/19/22 Time of Service: 09:18 Discharge Plan Disposition Patient Disposition: Home Condition: Good Discharge Details Reason For Visit: hernia surgery Attending Provider: Janie Brady Primary Care Provider: Naida Fallon Home Meds and New Rx's Prescriptions: New tramadol 50 mg tablet 50 mg PO Q4H PRN PRNQty: 14 0RF Continued Natural Fiber Supplement 6 gram/6 gram powder 1 tbs PO DAILY Rx Instructions: mix into at least 8 oz of water or juice before administering afipbsd-nhcs-vgrct-oreg-capryl 100 mg-150 mg- 50 mg-150 mg capsule 1 cap PO TID [place] solidago 1 - 3 ml PO/SL DAILY PRN Patient Comments: homeopathic spilanthes acmella 1 ml PO/SL DAILY PRN Patient Comments: homeopathic Discharge Instructions Additional Instructions: Dr. Brady HERNIA REPAIR ? POSTOPERATIVE INSTRUCTIONS Patients who have this type of surgery can usually be expected to return to work within two weeks and have minimal amounts of discomfort. ? ACTIVITY: The day of surgery should be spent resting. However, you can be up for short periods of time, I.E., going to the bathroom or kitchen. Avoid lifting or straining. On the day following surgery, you can be up and about as desired. ? LIFTING: Restrict your lifting to no more than five (5) pounds for the first week following surgery. For the second week after surgery, don?t lift more than ten pounds.? We will decide when you are done with restrictions and when you can return to work, at your follow-up appointment.? No sexual activity for two weeks.? ? DIET: There are no dietary restrictions following surgery. However, you may want to start with small amounts of liquids to avoid nausea the day of surgery. ? INCISION CARE: You will notice purple skin glue closing the incision.? Do not peel this off- it will wear off on its own.? After 24 hours you may shower. The dressing may be replaced for comfort, but is not necessary. ?An ice bag may be applied to the incision for 72 hours following surgery. ? SIGNS OF INFECTION: It is not unusual to have some black and blue discoloration of the skin around the incision.? ?It will slowly disappear. If you have any increased redness, drainage, fever (above 100 degrees), please contact your doctor for an examination. ? DISCOMFORT: You may expect to have some mild discomfort at the incision sight. If severe pain develops you should contact your doctor for further instructions. ? URINATION: Patients who have surgery occasionally have problems urinating. If you experience problems and are not able to urinate within 6 hours following your surgery, please call your doctor immediately or go to your nearest Emergency Room for evaluation. ? DRIVING: NO driving for three (3) days after surgery, or if you are still taking narcotic pain medication.? ? MEDICATIONS: Alternate Tylenol 1000mg by mouth every 8 hours and Ibuprofen 600mg every 6 hours. ?Make sure you take ibuprofen with food and not on an empty stomach. ?Take the Tylenol and ibuprofen continuously for the first 72hrs- not just when you have pain.? Use the tramadol for breakthrough pain.? Use ICE!?? Twenty minutes on, and then off, continuously for the first 72hours. If you are taking narcotic pain medication, follow the instructions on the label and do not drive. Pain medications can make you very constipated. Make sure you are moving your bowels daily. If not, take Miralax, milk of magnesia or magnesium citrate.?? Anesthesia makes you very constipated.? Take a dose of milk of magnesia the morning after surgery. ? REPORT: Unusual swelling, severe pain, unresolved nausea, signs of infection, or difficulty in urination to your surgeon. Follow up in clinic with Dr. Brady in 2 weeks.? [phone] Activity:: see above Remove Dressings/Wound Care:: 24 hours Shower/Bathe:: 24 hours Diet:: As Tolerated Discharge Orders Discharge Orders: Discharge Order (Routine); Ordered 08/19/22 Ordered By: Janie Brady DS: Diagnosis Discharge Diagnosis (1) Umbilical hernia without mention of obstruction or gangrene: Status: Acute Asessment and Plan: The patient is doing well post-op from their umbilical hernia surgery.? They are having no nausea or vomiting. They are tolerating liquids and a snack. The pt is not having any chest pain or SOB.? Their pain is adequately controlled. They have been able to urinate.? ?HEENT:? no eye pain/drainage/redness/swelling. Mild sore throat ?Cardio- NSR, no chest pain, BP stable- see VS record ?Pulm: no sob or productive cough. No hemoptysis ?Incision- dressing is c/d/i w/ no excessive bleeding or drainage ?I discussed with the patient the findings at the time of surgery and the patient?s progress. ?We reviewed expectations at home; what the patient could expect for recovery time, and in the post-operative period.? We discussed the importance of walking to avoid blood clots and pneumonia.? We discussed and reviewed the patient's post-operative wound care and dressing needs.?? We reviewed their step-brand pain management plan, Rx called to the pharmacy of their choice.? We reviewed activity and limitations-see discharge instructions. We reviewed warning signs, and when to seek medical attention- see d/c instructions.?? Patient was given a postoperative follow-up appointment. Patient verbalized understanding of their postoperative instructions, how do to take care of themselves and their incision, and the pain management plan. Please see discharge instructions.?
[2022-08-19] VITALS (8 sets, daily range): BP systolic 115–139; BP diastolic 67–89; PULSE 53–72; RESP 15–18; TEMP 36.3–36.7; O2SAT 96–99; BMI 26.8
[2022-08-19] MEDS: Gabapentin 300 MG CAP 600 MG PO (06:52)
[2022-08-19] MEDS: Acetaminophen 500 MG TAB 1000 MG PO (06:53)
[2022-08-19] MEDS: Lactated Ringers 1,000 ML 80 ML IV (06:53)
--- NOTE | 2022-08-19 07:28 | ANES.PREOP_ITS ---
General Info Date of Service Date Performed: 08/19/22 Height: 5 ft 9 in Weight: 82.4 kg Body Mass Index (BMI): 26.8 Surgical Procedure: Operation Date: 08/19/22 07:40 Proposed Procedure Side Surgeon p Herniorrhaphy Umbilical w/Mesh Janie Brady, Meds Allergies and Home Medications Allergies Allergy/AdvReac Type Severity Reaction Status Date / Time No Known Allergies Allergy Verified 08/19/22 06:28 Home Medication Medication Instructions Recorded [place] Solidago 1 - 3 ml PO/SL DAILY PRN 08/16/13 Spilanthes Acmella 1 ml PO/SL DAILY PRN 08/16/13 psyllium husk 6 gram/6 gram oral 1 tbs PO DAILY 11/23/19 powder (Natural Fiber Supplement) tumeric 100 mg-omero 150 mg-olive 1 cap PO TID 12/16/21 50 mg-oreg 150 mg-caprylate capsule Current Visit Medications: Current Medications Generic Name Dose Route Start Last Admin Trade Name Freq PRN Reason Stop Dose Admin Acetaminophen 1,000 mg 08/19/22 06:00 08/19/22 06:53 Acetaminophen 500 Mg Tab PO 08/19/22 23:59 1,000 mg PREOP ASHLYN Administration Gabapentin 600 mg 08/19/22 06:00 08/19/22 06:52 Gabapentin 300 Mg Cap PO 08/19/22 23:59 600 mg PREOP ASHLYN Administration Ringer's Solution 1,000 mls @ 80 mls/hr 08/19/22 06:00 08/19/22 06:53 IV 08/19/22 23:59 80 mls/hr INFUSION ASHLYN Administration Cefazolin Sodium/Dextrose 2 gm in 50 mls @ 100 mls/hr 08/19/22 06:00 Ancef Duplex IVPB 08/19/22 23:59 PREOP ASHLYN Ondansetron HCl 4 mg/ Sodium 52 mls @ 200 mls/hr 08/19/22 09:59 Chloride IVPB 09/18/22 09:58 Q6H PRN PRN IV Miscellaneous Supplies 1 each 08/19/22 06:00 Iv Access IV 08/19/22 23:59 DIRECTED ASHLYN Morphine Sulfate 2 mg 08/19/22 09:59 Morphine 4 Mg/Ml Syr IVP 09/18/22 09:58 Q1H PRN PRN Sodium Chloride 0 ml 08/19/22 06:00 Normal Saline Flush 10 Ml Syr IV 08/19/22 23:59 PRN PRN Sodium Chloride 0 ml 08/19/22 06:00 Normal Saline 10 Ml Vial IJ 08/19/22 23:59 DIRECTED PRN Sterile Water 0 ml 08/19/22 06:00 Water,Injection,Sterile 10 Ml Vial IJ 08/19/22 23:59 DIRECTED PRN Tramadol HCl 50 mg 08/19/22 09:59 Tramadol 50 Mg Tab PO 09/18/22 09:58 Q6H PRN PRN Pain PFSH Active Problems Active Problems: Problem Status Onset Code Impaired fasting glucose 08/16/13 R73.01 Irritable bowel syndrome K58.9 Elevated blood pressure reading without diagnosis of hypertension R03.0 Tubular adenoma ~2019 D36.9 Family history of diabetes mellitus in mother Z83.3 Umbilical hernia without mention of obstruction or gangrene ~06/2021 K42.9 Degenerative joint disease of right knee ~11/2021 M17.11 Actinic keratosis ~02/2022 L57.0 Medical History Medical History Colon cancer screening COVID-19 Encounter for screening for coronary artery disease Hallux limitus of left foot (01/29/15) Armando Gonzalez: with end stage arthrosis, hammertoe deformities, metadductus foot type Joint laxity of right knee (11/22/14) MRI: 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 Lateral and medial meniscal tears. 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 Laryngospasm r/t to covid Ligamentous laxity of ankle Rectal pain Surgical History Surgical History Hand surgery History of colonoscopy (~11/07/19) Tobacco Smoking/Tobacco Use Status: Former Tobacco Use Alcohol Alcohol Intake: never Substance Use Substance use: Never Substance use type: does not use Vital Signs and Lab Results Vital Signs Most Recent Vital Signs in EMR: Most Recent Vital Signs Temp Pulse Resp BP Pulse Ox 36.7 C 72 18 138/84 96 08/19/22 06:38 08/19/22 06:38 08/19/22 06:38 08/19/22 06:38 08/19/22 06:38 Lab Results Blood Type / Crossmatch: No Data to Display Complete Blood Count: No Data to Display Complete Metabolic Panel: No Data to Display Liver Function Panel: No Data to Display Coagulation Panel: No Data to Display Cardiac Panel: No Data to Display Arterial Blood Gas: No Data to Display Venous Blood Gas: No Data to Display Pancreas Panel: No Data to Display Thyroid Panel: No Data to Display Infectious Disease: No Data to Display Blood Cultures: No Data to Display Toxicology Panel: No Data to Display Anesthesia Assessment and Plan Anesthesia History Personal History: No History of Anesthesia Complications Family History: No Family History of Anesthesia Complications Exercise Tolerance Exercise Tolerance: Metabolic Equivalents>4 Pertinent Negatives Pertinent Negatives: No Symptoms of GERD Cardiac & Pulmonary Exam Cardiac Exam: Normal S1/S2 Heart Sounds Pulmonary Exam: Clear Bilateral Breath Sounds Implantable Cardiac Device Does patient have a Pacemaker or an ICD?: No Airway Exam Known Difficult Airway: No Mallampati Class: 2 Mouth Opening: Normal (> 3cm) Thyromental Distance: Greater than 3 cm Neck Range of Motion: Full ROM Neck Circumference: Normal Teeth Condition: Normal Dentition ASA Classification ASA Score: ASA 2 Emergency Case?: No NPO Status NPO Status: NPO Clears >2 hours, Solids >8 hours Anesthesia Plan Resuscitation Status: Full Code Anesthesia Technique: General Anesthesia Airway Planned: Endotracheal Tube Pain Management: Surgeon and patient request nerve block Monitors Used: Standard Monitors
[2022-08-19] MEDS: ceFAZolin 2 GM/50 ML BAG IVPB (07:35)
[2022-08-19] MEDS: Bupivacaine 0.25% Pres-Free 30 ML VIAL (08:12)
--- NOTE | 2022-08-19 09:03 | W.ANESNERVE ---
Nerve Block Single Injection Procedure Date and Time Date Performed: 08/19/22 Procedure Start: 07:48 Location Where Procedure Performed Procedure Location: Operating Room Procedure Stop: 07:57 Reason Performed: Postoperative Analgesia Requesting Provider: Janie Brady Timeout Performed Timeout Performed: Yes Monitoring Used ECG, Blood Pressure, SpO2 and ETCO2 Sterility Sterility: Hand Hygiene, Surgical Cap, Surgical Mask, Sterile Gloves and Chlorhexidine Sedation Given During Procedure Sedation Given (Indicate Dose Given): No Sedation given Patient Mental Status Patient Mental Status: Performed under general anesthesia Nerve Block 1st Nerve Block: Laterality: Bilateral Block Type: Rectus Sheath (Bilateral) Ultrasound Image Saved?: Yes Needle / Catheter Used: 100mm SonoPlex II Local Anesthetic Bolus (Indicate Dose Given): None and Bupivacaine 0.25% Dose:: 40 ml Additives (Indicate Dose Given): None Ultrasound: Sterile probe cover and gel used Nerve Stimulator: Not Used Paresthesia: None Procedure Tolerated: No Complications and Patient tolerated well Procedure Outcome: Successful Performed By: Austin Olivo
--- NOTE | 2022-08-19 09:11 | W.PM.OP ---
Date of service: 08/19/22 Time of Service: 09:11 Operative Note Operative Note DATE OF PROCEDURE: 08/19/22 PRE-OP DIAGNOSIS: large umbilical hernia content is 6cm POST-OP DIAGNOSIS: same PROCEDURE: open Herniorrhaphy with 3 cm defect 6.4cm mesh placed. SURGEON: Janie Mcdaniels REGENERATOR OPERATOR: Valentina Hutchinson ANESTHESIA TYPE: Local By Surgeon, General LMA/ETT and Primary Nerve Block Refer to Anesthesia Record ESTIMATED BLOOD LOSS: 5 PATHOLOGY: none sent COMPLICATIONS: None Patient was transported to: PACU Patient's condition: stable Procedure Description: SURGEON: Janie Mcdaniels DO ANESTHESIA: MAC. ESTIMATED BLOOD LOSS: Less than 5 mL. COMPLICATIONS: The patient tolerated the procedure well without complications. INDICATIONS: The patient is here today for symptomatic umbilical hernia and is here today for repair. Informed consent was obtained, explaining risks and benefits of the procedure including but not limited to bleeding, infection, pneumonia, blood clots, recurrence, chronic pain, and chronic numbness, reaction to mesh necessitating removal, complications of anesthesia and other unforetold complications. DESCRIPTION OF PROCEDURE: The patient was brought to the operating suite and placed in supine position. Anesthesia was administered per the Department of Anesthesia. Patient prepped and draped in the usual sterile fashion using ChloraPrep scrub solution. IV antibiotics were administered. Pause for the cause was done. A 2-inch incision was made in the inferiorly to the umbilicus. Umbilicus was dissected off the fascia. The fascia was dissected off from surrounding tissue. The fascial defect is 3 cm. there is omentum protruding that could not be returned to the abdominal cavity. This is excised using the LigaSure. A small Kerlix/Ventrilux patch was then placed in the defect, the defect was closed, oversewn with 2-0 vicryl and was copiously irrigated. umbilical plasty was performed using 2-0 vicryl. Deep tissue was approximated with 3-0 Vicryl and skin was approximated with 4-0 Monocryl in a running subcuticular fashion. Skin glue and sterile dressings are applied. The patient tolerated the procedure well without complications and was transferred to recovery room in stable condition. JANIE MCDANIELS DO
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
== END 2022-08-19 11:00 | disposition home or self-care (01) ==
PROVIDERS: PCP Nurse Practitioner Adult Health; Visit Provider Surgery
PROC: (CPT 49593; principal; 2022-08-19 07:30)
DX: K42.9 Umbilical hernia without obstruction or gangrene (principal); K58.9 Irritable bowel syndrome, unspecified
CPT/HCPCS: 49593; 76942; C1781; J0690; J1100; J2405

== ENCOUNTER → 2022-09-01 09:57 | Outpatient (BNVA) | payer MEDICARE, SELFPAY | PROVIDERS: PCP Nurse Practitioner Adult Health; Referring Provider Nurse Practitioner Adult Health; Visit Provider Surgery | DX: Z48.817 Encounter for surgical aftercare following surgery on the skin and subcutaneous tissue (principal) ==

== ENCOUNTER 2023-08-03 10:51 | Outpatient (REF) | payer MEDICARE, BC, SELFPAY ==
[2023-08-03 16:06] LABS: Bilirubin Negative (Negative); Blood Trace-lysed (Negative); Clarity Clear (Clear); Glucose Negative (Negative); Ketones Negative (Negative); Leukocyte Esterase Negative (Negative); Nitrite Negative (Negative); Specific Gravity 1.015 (1.005-1.025); Urobilinogen 0.2 mg/dL (Up to 0.2); pH 6.5 (5-8)
[2023-08-03 16:26] LABS: Bacteria Negative HPF (Negative); C & S Indicated? No; Casts Negative LPF (Negative); Crystals Negative HPF (Negative); Epithelial Cells Rare HPF (Negative); Mucus Negative (Negative); RBC 0-2 HPF (0-2); WBC 0-2 HPF (0-5)
== END 2023-08-03 10:52 | disposition home or self-care (01) ==
LOC: LBN 10:51
PROVIDERS: PCP Nurse Practitioner Adult Health; Visit Provider Nurse Practitioner Adult Health
DX: R35.1 Nocturia (principal); R35.0 Frequency of micturition
CPT/HCPCS: 81003; 81015

== ENCOUNTER 2023-08-17 05:32 | Outpatient (CLI) | payer MEDICARE, BC, SELFPAY ==
[2023-08-17 08:39] LABS: ALT 28 U/L (16-63); AST 20 U/L (15-37); Albumin 3.7 g/dL (3.4-5.0); Alkaline Phosphatase 97 U/L (46-116); Anion Gap 4.3 mmol/L (3-11); BUN 16 mg/dL (7-18); Bilirubin, Total 0.5 mg/dL (0.2-1.0); CO2 28.7 mmol/L (21.0-32.0); CREATININE 1.1 mg/dL (0.70-1.30); Calcium 9.1 mg/dL (8.5-10.1); Chloride 108 mmol/L (98-107); Estimated GFR 72.67 (mL/min/1.73m2); Glucose 108 mg/dL (74-106); Potassium 4.3 mmol/L (3.5-5.1); Sodium 141 mmol/L (136-145); Total Protein 7.7 g/dL (6.4-8.2)
[2023-08-17 18:33] LABS: PSA, Screening 29.4 ng/mL (<=4.5)
== END 2023-08-17 05:33 | disposition home or self-care (01) ==
LOC: LBO 05:32
PROVIDERS: Absent Provider Nurse Practitioner Adult Health; PCP Nurse Practitioner Adult Health; Referring Provider Nurse Practitioner Adult Health; Visit Provider Nurse Practitioner Adult Health
DX: R35.1 Nocturia (principal); R35.0 Frequency of micturition; Z12.5 Encounter for screening for malignant neoplasm of prostate
CPT/HCPCS: 36415; 80053; 84153

== ENCOUNTER → 2023-09-03 09:34 | Outpatient (BNVA) | payer MEDICARE, BC, SELFPAY | PROVIDERS: PCP Nurse Practitioner Adult Health; Referring Provider Nurse Practitioner Adult Health; Visit Provider Urology | DX: R31.29 Other microscopic hematuria (principal); R97.20 Elevated prostate specific antigen [PSA] | CPT/HCPCS: 99442 ==

== ENCOUNTER 2023-09-07 15:23 | Outpatient (CLI) | payer MEDICARE, BC, SELFPAY ==
[2023-09-07 19:48] LABS: PSA, Diagnostic 31.2 ng/mL (<=4.5)
== END 2023-09-07 15:24 | disposition home or self-care (01) ==
LOC: LBO 15:23
PROVIDERS: PCP Nurse Practitioner Adult Health; Visit Provider Urology
DX: R97.20 Elevated prostate specific antigen [PSA] (principal)
CPT/HCPCS: 36415; 84153

== ENCOUNTER → 2023-09-15 11:05 | Outpatient (BNVA) | payer MEDICARE, BC, SELFPAY | PROVIDERS: PCP Nurse Practitioner Adult Health; Referring Provider Nurse Practitioner Adult Health; Visit Provider Urology | DX: N42.89 Other specified disorders of prostate (principal); R97.20 Elevated prostate specific antigen [PSA] | CPT/HCPCS: 99442 ==

== ENCOUNTER → 2023-12-11 10:49 | Outpatient (BNVA) | payer MEDICARE, BC, SELFPAY | PROVIDERS: PCP Nurse Practitioner Adult Health; Referring Provider Nurse Practitioner Adult Health; Visit Provider Urology | DX: R39.89 Other symptoms and signs involving the genitourinary system (principal); R97.20 Elevated prostate specific antigen [PSA] | CPT/HCPCS: 99214 ==

== ENCOUNTER → 2023-12-28 10:38 | Outpatient (BNVA) | payer MEDICARE, BC, SELFPAY | PROVIDERS: PCP Nurse Practitioner Adult Health; Referring Provider Nurse Practitioner Adult Health; Visit Provider Urology | DX: R39.89 Other symptoms and signs involving the genitourinary system (principal); R97.20 Elevated prostate specific antigen [PSA]; C61 Malignant neoplasm of prostate | CPT/HCPCS: 55700; 76872 ==

== ENCOUNTER 2023-12-28 12:34 | Outpatient (REF) | payer MEDICARE, BC, SELFPAY ==
--- NOTE | 2023-12-28 11:30 | PROST_PTH ---
PATIENT: Roland Betancourt LOC: [facility] U#:[id number] AGE/SX: 70/M ROOM: RE12/28/[address]: Cuate Delvalle MD : 11/07/1953 BED: DIS: 12/28/2023 SPEC #: [id number] RECD: 12/28/23 13:18 STATUS: JACQUELINE REQ #: [id number] STEPHANIE: 12/28/23 11:[address]: Cuate Delvalle DEPT: Surgical Specimen RECD BY: Silvana Barth ENTERED: 12/28/23 13:19 SP TYPE: PROST OTHR DR: Naida Fallon APRN Tissues: 1 - PROSTATE NEEDLE BIOPSY 2 - PROSTATE NEEDLE BIOPSY 3 - PROSTATE NEEDLE BIOPSY 4 - PROSTATE NEEDLE BIOPSY 5 - PROSTATE NEEDLE BIOPSY 6 - PROSTATE NEEDLE BIOPSY 7 - PROSTATE NEEDLE BIOPSY 8 - PROSTATE NEEDLE BIOPSY 9 - PROSTATE NEEDLE BIOPSY 10 - PROSTATE NEEDLE BIOPSY 11 - PROSTATE NEEDLE BIOPSY 12 - PROSTATE NEEDLE BIOPSY Procedures: GROSS AND MICRO LEVEL 4 IMMUNOPEROXIDASE STAIN Comments: [id number]
== END 2023-12-28 12:35 | disposition home or self-care (01) ==
LOC: LBN 12:34
PROVIDERS: PCP Nurse Practitioner Adult Health; Visit Provider Urology
DX: R97.20 Elevated prostate specific antigen [PSA] (principal); C61 Malignant neoplasm of prostate
CPT/HCPCS: 88305; 88361

== ENCOUNTER → 2024-01-12 14:42 | Outpatient (BNVA) | payer MEDICARE, BC, SELFPAY | PROVIDERS: PCP Nurse Practitioner Adult Health; Referring Provider Nurse Practitioner Adult Health; Visit Provider Urology | DX: C61 Malignant neoplasm of prostate (principal) | CPT/HCPCS: 99215 ==

== ENCOUNTER → 2024-02-19 10:46 | Outpatient (BNVA) | payer MEDICARE, BC, SELFPAY | PROVIDERS: PCP Nurse Practitioner Adult Health; Referring Provider Nurse Practitioner Adult Health; Visit Provider Urology | DX: C61 Malignant neoplasm of prostate (principal) | CPT/HCPCS: 99214 ==

== ENCOUNTER 2024-02-24 13:08 | Outpatient (CLI) | payer MEDICARE, BC, SELFPAY ==
[2024-02-24 12:27] LABS: Abs Immature Grans 0.01 10^3/uL (0.0-0.06); Absolute Basophil Count 0.02 10^3/uL (0.0-0.2); Absolute Lymphocyte Count 2.14 10^3/uL (1.2-3.4); Absolute Monocyte Count 0.57 10^3/uL (0.1-0.8); Absolute Neutrophil Count 3.21 10^3/uL (1.2-6.7); Basophils % 0.3 %; Eosinophils % 1.7 %; HCT 37.2 % (40.0-50.0); HGB 12.3 g/dL (13.5-17.5); Immature Grans % 0.2 %; Lymphocytes % 35.4 %; MCH 30.4 pg (27.0-33.0); MCHC 33.1 % (32.0-36.0); MCV 92 fL (80-95); MPV 9.1 fL (8.0-11.0); Monocytes % 9.4 %; Platelet Count 266 10^3/uL (130-400); RBC 4.04 10^6/uL (4.36-5.78); RDW-SD 40.7 fL; WBC 6.05 10^3/uL (4.4-10.8)
[2024-02-24 12:46] LABS: ALT 25 U/L (16-63); AST 19 U/L (15-37); Albumin 3.5 g/dL (3.4-5.0); Alkaline Phosphatase 190 U/L (46-116); Anion Gap 10.2 mmol/L (3-11); BUN 12 mg/dL (7-18); Bilirubin, Total 0.27 mg/dL (0.2-1.0); CO2 25.8 mmol/L (21.0-32.0); CREATININE 1.3 mg/dL (0.70-1.30); Calcium 8.8 mg/dL (8.5-10.1); Chloride 105 mmol/L (98-107); Glucose 97 mg/dL (74-106); Potassium 4.2 mmol/L (3.5-5.1); Sodium 141 mmol/L (136-145); Total Protein 7.7 g/dL (6.4-8.2)
[2024-02-26 14:48] LABS: PSA, Ultrasensitive 87.8 ng/mL (<= 6.5)
[2024-02-28 09:12] LABS: Testosterone, Total 433 ng/dL (240-950)
== END 2024-02-24 13:09 | disposition home or self-care (01) ==
PROVIDERS: PCP Nurse Practitioner Adult Health; Visit Provider Internal Medicine
DX: C61 Malignant neoplasm of prostate (principal)
CPT/HCPCS: 36415; 80053; 84153; 84403; 85025

== ENCOUNTER → 2024-03-22 07:55 | Outpatient (BNVA) | payer MEDICARE, BC, SELFPAY | PROVIDERS: PCP Nurse Practitioner Adult Health; Referring Provider Nurse Practitioner Adult Health; Visit Provider Urology | DX: C61 Malignant neoplasm of prostate (principal); N13.30 Unspecified hydronephrosis | CPT/HCPCS: 76775 ==

== ENCOUNTER 2024-03-29 02:26 | Outpatient (CLI) | payer MEDICARE, BC, SELFPAY ==
[2024-03-29 13:23] LABS: Abs Immature Grans 0.02 10^3/uL (0.0-0.06); Absolute Basophil Count 0.06 10^3/uL (0.0-0.2); Absolute Eosinophil Count 0.29 10^3/uL (0.0-0.7); Absolute Monocyte Count 0.75 10^3/uL (0.1-0.8); Absolute Neutrophil Count 4.34 10^3/uL (1.2-6.7); Basophils % 0.7 %; Eosinophils % 3.5 %; HCT 39.7 % (40.0-50.0); HGB 13.4 g/dL (13.5-17.5); Immature Grans % 0.2 %; Lymphocytes % 33.9 %; MCH 30.7 pg (27.0-33.0); MCHC 33.8 % (32.0-36.0); MCV 91 fL (80-95); MPV 9.4 fL (8.0-11.0); Monocytes % 9.1 %; Neutrophils % 52.6 %; Platelet Count 263 10^3/uL (130-400); RBC 4.36 10^6/uL (4.36-5.78); RDW 12.3 % (11.8-14.1); RDW-SD 41.1 fL; WBC 8.26 10^3/uL (4.4-10.8)
[2024-03-29 13:45] LABS: ALT 53 U/L (16-63); AST 31 U/L (15-37); Albumin 3.5 g/dL (3.4-5.0); Alkaline Phosphatase 303 U/L (46-116); Anion Gap 6.4 mmol/L (3-11); BUN 14 mg/dL (7-18); Bilirubin, Total 0.15 mg/dL (0.2-1.0); CO2 30.6 mmol/L (21.0-32.0); CREATININE 1.2 mg/dL (0.70-1.30); Calcium 8.9 mg/dL (8.5-10.1); Chloride 105 mmol/L (98-107); Estimated GFR 65.06 (mL/min/1.73m2); Glucose 106 mg/dL (74-106); Potassium 4.1 mmol/L (3.5-5.1); Sodium 142 mmol/L (136-145); Total Protein 7.9 g/dL (6.4-8.2)
[2024-03-31 14:39] LABS: PSA, Ultrasensitive 5.3 ng/mL (<= 6.5)
== END 2024-03-29 02:27 | disposition home or self-care (01) ==
PROVIDERS: PCP Nurse Practitioner Adult Health; Visit Provider Nurse Practitioner
DX: C61 Malignant neoplasm of prostate (principal)
CPT/HCPCS: 36415; 80053; 84153; 84403; 85025

== ENCOUNTER 2024-04-05 15:54 | Outpatient (CLI) | payer MEDICARE, BC, SELFPAY ==
[2024-04-05 08:34] LABS: Abs Immature Grans 0.03 10^3/uL (0.0-0.06); Absolute Basophil Count 0.04 10^3/uL (0.0-0.2); Absolute Eosinophil Count 0.23 10^3/uL (0.0-0.7); Absolute Lymphocyte Count 2.22 10^3/uL (1.2-3.4); Absolute Monocyte Count 0.71 10^3/uL (0.1-0.8); Absolute Neutrophil Count 3.68 10^3/uL (1.2-6.7); Basophils % 0.6 %; Eosinophils % 3.3 %; HGB 12.5 g/dL (13.5-17.5); Immature Grans % 0.4 %; Lymphocytes % 32.1 %; MCH 30.6 pg (27.0-33.0); MCHC 33.8 % (32.0-36.0); MCV 91 fL (80-95); MPV 9.1 fL (8.0-11.0); Monocytes % 10.3 %; Neutrophils % 53.3 %; Platelet Count 272 10^3/uL (130-400); RBC 4.09 10^6/uL (4.36-5.78); RDW 12.1 % (11.8-14.1); RDW-SD 39.9 fL; WBC 6.91 10^3/uL (4.4-10.8)
[2024-04-05 08:51] LABS: ALT 42 U/L (16-63); AST 19 U/L (15-37); Albumin 3.3 g/dL (3.4-5.0); Alkaline Phosphatase 223 U/L (46-116); BUN 13 mg/dL (7-18); Bilirubin, Total 0.24 mg/dL (0.2-1.0); CREATININE 1.1 mg/dL (0.70-1.30); Calcium 9.5 mg/dL (8.5-10.1); Chloride 106 mmol/L (98-107); Estimated GFR 72.22 (mL/min/1.73m2); Glucose 103 mg/dL (74-106); Potassium 4.2 mmol/L (3.5-5.1); Sodium 140 mmol/L (136-145); Total Protein 7.6 g/dL (6.4-8.2)
[2024-04-07 10:48] LABS: PSA, Ultrasensitive 5.3 ng/mL (<= 6.5)
== END 2024-04-05 15:55 | disposition home or self-care (01) ==
LOC: LBO 15:55
PROVIDERS: PCP Nurse Practitioner Adult Health; Visit Provider Nurse Practitioner
DX: C61 Malignant neoplasm of prostate (principal)
CPT/HCPCS: 36415; 80053; 84153; 84403; 85025

== ENCOUNTER 2024-04-26 03:10 | Outpatient (CLI) | payer MEDICARE, BC, SELFPAY ==
[2024-04-26 08:22] LABS: Abs Immature Grans 0.15 10^3/uL (0.0-0.06); Absolute Basophil Count 0.01 10^3/uL (0.0-0.2); Absolute Lymphocyte Count 2.05 10^3/uL (1.2-3.4); Absolute Neutrophil Count 8.93 10^3/uL (1.2-6.7); Basophils % 0.1 %; HCT 36.1 % (40.0-50.0); HGB 11.9 g/dL (13.5-17.5); Immature Grans % 1.3 %; Lymphocytes % 17.3 %; MCV 91 fL (80-95); MPV 9.3 fL (8.0-11.0); Monocytes % 5.9 %; Neutrophils % 75.4 %; Platelet Count 401 10^3/uL (130-400); RBC 3.97 10^6/uL (4.36-5.78); RDW 12.5 % (11.8-14.1); RDW-SD 40.3 fL; WBC 11.84 10^3/uL (4.4-10.8)
[2024-04-26 08:42] LABS: ALT 30 U/L (16-63); AST 14 U/L (15-37); Albumin 3.1 g/dL (3.4-5.0); Alkaline Phosphatase 133 U/L (46-116); BUN 15 mg/dL (7-18); Bilirubin, Total 0.24 mg/dL (0.2-1.0); CREATININE 1.2 mg/dL (0.70-1.30); Calcium 9.7 mg/dL (8.5-10.1); Chloride 105 mmol/L (98-107); Estimated GFR 65.06 (mL/min/1.73m2); Glucose 130 mg/dL (74-106); Potassium 4.1 mmol/L (3.5-5.1); Sodium 140 mmol/L (136-145); Total Protein 7.9 g/dL (6.4-8.2)
[2024-04-28 13:00] LABS: PSA, Ultrasensitive 2.8 ng/mL (<= 6.5)
[2024-04-29 16:19] LABS: Testosterone, Total <7.0 ng/dL (240-950)
== END 2024-04-26 03:11 | disposition home or self-care (01) ==
PROVIDERS: PCP Nurse Practitioner Adult Health; Visit Provider Nurse Practitioner
DX: C61 Malignant neoplasm of prostate (principal)
CPT/HCPCS: 36415; 80053; 84153; 84403; 85025

== ENCOUNTER 2024-05-17 04:39 | Outpatient (CLI) | payer MEDICARE, BC, SELFPAY ==
[2024-05-17 08:20] LABS: Abs Immature Grans 0.11 10^3/uL (0.0-0.06); Absolute Lymphocyte Count 2.24 10^3/uL (1.2-3.4); Absolute Neutrophil Count 11.18 10^3/uL (1.2-6.7); Basophils % 0.1 %; HGB 12.2 g/dL (13.5-17.5); Immature Grans % 0.8 %; Lymphocytes % 15.3 %; MCH 29.7 pg (27.0-33.0); MCV 90 fL (80-95); MPV 9.2 fL (8.0-11.0); Monocytes % 7.5 %; Neutrophils % 76.3 %; Platelet Count 369 10^3/uL (130-400); RBC 4.11 10^6/uL (4.36-5.78); RDW 13.4 % (11.8-14.1); RDW-SD 43.4 fL; WBC 14.65 10^3/uL (4.4-10.8)
[2024-05-17 08:21] LABS: Absolute Basophil Count 0.01 10^3/uL (0.0-0.2)
[2024-05-17 08:36] LABS: ALT 26 U/L (16-63); AST 16 U/L (15-37); Albumin 3.3 g/dL (3.4-5.0); Alkaline Phosphatase 112 U/L (46-116); Anion Gap 12.9 mmol/L (3-11); BUN 12 mg/dL (7-18); Bilirubin, Total 0.21 mg/dL (0.2-1.0); CO2 24.1 mmol/L (21.0-32.0); CREATININE 1.2 mg/dL (0.70-1.30); Calcium 9.8 mg/dL (8.5-10.1); Chloride 106 mmol/L (98-107); Estimated GFR 65.06 (mL/min/1.73m2); Glucose 131 mg/dL (74-106); Potassium 4.1 mmol/L (3.5-5.1); Sodium 143 mmol/L (136-145); Total Protein 8.1 g/dL (6.4-8.2)
[2024-05-18 15:55] LABS: PSA, Ultrasensitive 1.7 ng/mL (<= 6.5)
[2024-05-21 10:33] LABS: Testosterone, Total <7.0 ng/dL (240-950)
== END 2024-05-17 04:40 | disposition home or self-care (01) ==
PROVIDERS: PCP Nurse Practitioner Adult Health; Visit Provider Nurse Practitioner
DX: C61 Malignant neoplasm of prostate (principal)
CPT/HCPCS: 36415; 80053; 84153; 84403; 85025

== ENCOUNTER → 2024-05-27 07:44 | Outpatient (BNVA) | payer MEDICARE, BC, SELFPAY | PROVIDERS: PCP Nurse Practitioner Adult Health; Referring Provider Nurse Practitioner Adult Health; Visit Provider Urology | DX: N13.30 Unspecified hydronephrosis (principal); C61 Malignant neoplasm of prostate | CPT/HCPCS: 76775; 99213 ==

== ENCOUNTER 2024-06-07 02:58 | Outpatient (CLI) | payer MEDICARE, BC, SELFPAY ==
[2024-06-07 08:04] LABS: Abs Immature Grans 0.04 10^3/uL (0.0-0.06); Absolute Basophil Count 0.04 10^3/uL (0.0-0.2); Absolute Eosinophil Count 0.03 10^3/uL (0.0-0.7); Absolute Lymphocyte Count 2.22 10^3/uL (1.2-3.4); Absolute Monocyte Count 0.85 10^3/uL (0.1-0.8); Basophils % 0.6 %; Eosinophils % 0.4 %; HGB 11.9 g/dL (13.5-17.5); Immature Grans % 0.6 %; Lymphocytes % 31.4 %; MCH 29.2 pg (27.0-33.0); MCHC 32.2 % (32.0-36.0); MCV 91 fL (80-95); MPV 9.5 fL (8.0-11.0); Platelet Count 267 10^3/uL (130-400); RBC 4.07 10^6/uL (4.36-5.78); RDW 14.4 % (11.8-14.1); RDW-SD 47.7 fL; WBC 7.08 10^3/uL (4.4-10.8)
[2024-06-07 08:20] LABS: ALT 34 U/L (16-63); AST 23 U/L (15-37); Albumin 3.2 g/dL (3.4-5.0); Alkaline Phosphatase 93 U/L (46-116); Anion Gap 6.1 mmol/L (3-11); BUN 11 mg/dL (7-18); Bilirubin, Total 0.3 mg/dL (0.2-1.0); CO2 27.9 mmol/L (21.0-32.0); CREATININE 1.1 mg/dL (0.70-1.30); Calcium 9.3 mg/dL (8.5-10.1); Chloride 106 mmol/L (98-107); Estimated GFR 72.22 (mL/min/1.73m2); Glucose 104 mg/dL (74-106); Potassium 4.1 mmol/L (3.5-5.1); Sodium 140 mmol/L (136-145); Total Protein 7.3 g/dL (6.4-8.2)
== END 2024-06-07 02:59 | disposition home or self-care (01) ==
PROVIDERS: PCP Nurse Practitioner Adult Health; Visit Provider Internal Medicine
DX: C61 Malignant neoplasm of prostate (principal)
CPT/HCPCS: 36415; 80053; 84153; 84403; 85025

== ENCOUNTER 2024-06-28 02:04 | Outpatient (CLI) | payer MEDICARE, BC, SELFPAY ==
[2024-06-28 08:25] LABS: Abs Immature Grans 0.01 10^3/uL (0.0-0.06); Absolute Basophil Count 0.05 10^3/uL (0.0-0.2); Absolute Eosinophil Count 0.02 10^3/uL (0.0-0.7); Absolute Lymphocyte Count 2.21 10^3/uL (1.2-3.4); Absolute Monocyte Count 0.84 10^3/uL (0.1-0.8); Absolute Neutrophil Count 3.26 10^3/uL (1.2-6.7); Basophils % 0.8 %; Eosinophils % 0.3 %; HCT 36.7 % (40.0-50.0); HGB 12.1 g/dL (13.5-17.5); Immature Grans % 0.2 %; Lymphocytes % 34.6 %; MCH 29.4 pg (27.0-33.0); MCV 89 fL (80-95); Monocytes % 13.1 %; Platelet Count 284 10^3/uL (130-400); RBC 4.12 10^6/uL (4.36-5.78); RDW 14.9 % (11.8-14.1); RDW-SD 48.4 fL; WBC 6.39 10^3/uL (4.4-10.8)
[2024-06-28 08:45] LABS: ALT 43 U/L (16-63); AST 27 U/L (15-37); Albumin 3.3 g/dL (3.4-5.0); Alkaline Phosphatase 83 U/L (46-116); Anion Gap 10.8 mmol/L (3-11); BUN 10 mg/dL (7-18); Bilirubin, Total 0.2 mg/dL (0.2-1.0); CO2 25.2 mmol/L (21.0-32.0); CREATININE 1.1 mg/dL (0.70-1.30); Calcium 9.4 mg/dL (8.5-10.1); Chloride 105 mmol/L (98-107); Estimated GFR 72.22 (mL/min/1.73m2); Glucose 111 mg/dL (74-106); Potassium 4.3 mmol/L (3.5-5.1); Sodium 141 mmol/L (136-145); Total Protein 7.1 g/dL (6.4-8.2)
[2024-06-29 18:52] LABS: PSA, Ultrasensitive 0.35 ng/mL (<= 6.5)
[2024-07-02 11:20] LABS: Testosterone, Total 8.6 ng/dL (240-950)
== END 2024-06-28 02:05 | disposition home or self-care (01) ==
LOC: LBO 02:04
PROVIDERS: PCP Nurse Practitioner Adult Health; Visit Provider Internal Medicine
DX: C61 Malignant neoplasm of prostate (principal)
CPT/HCPCS: 36415; 80053; 84153; 84402; 84403; 84410; 85025

== ENCOUNTER → 2024-07-01 09:45 | Outpatient (BNVA) | payer MEDICARE, BC, SELFPAY | PROVIDERS: PCP Nurse Practitioner Adult Health; Referring Provider Nurse Practitioner Adult Health; Visit Provider Urology | DX: N13.30 Unspecified hydronephrosis (principal) | CPT/HCPCS: 76775 ==

== ENCOUNTER 2024-07-19 03:40 | Outpatient (CLI) | payer MEDICARE, BC, SELFPAY ==
[2024-07-19 08:08] LABS: Abs Immature Grans 0.09 10^3/uL (0.0-0.06); Absolute Basophil Count 0.08 10^3/uL (0.0-0.2); Absolute Eosinophil Count 0.03 10^3/uL (0.0-0.7); Absolute Lymphocyte Count 2.89 10^3/uL (1.2-3.4); Absolute Monocyte Count 1.16 10^3/uL (0.1-0.8); Basophils % 0.9 %; Eosinophils % 0.4 %; HCT 39.8 % (40.0-50.0); HGB 12.6 g/dL (13.5-17.5); Immature Grans % 1.1 %; Lymphocytes % 33.8 %; MCH 28.8 pg (27.0-33.0); MCHC 31.7 % (32.0-36.0); MCV 91 fL (80-95); MPV 9.9 fL (8.0-11.0); Monocytes % 13.6 %; Neutrophils % 50.2 %; Platelet Count 294 10^3/uL (130-400); RBC 4.37 10^6/uL (4.36-5.78); RDW 14.6 % (11.8-14.1); RDW-SD 48.7 fL; WBC 8.55 10^3/uL (4.4-10.8)
[2024-07-19 08:31] LABS: ALT 28 U/L (16-63); AST 20 U/L (15-37); Albumin 3.2 g/dL (3.4-5.0); Alkaline Phosphatase 80 U/L (46-116); Anion Gap 7.3 mmol/L (3-11); BUN 13 mg/dL (7-18); Bilirubin, Total 0.2 mg/dL (0.2-1.0); CO2 26.7 mmol/L (21.0-32.0); CREATININE 1.2 mg/dL (0.70-1.30); Calcium 9.5 mg/dL (8.5-10.1); Chloride 108 mmol/L (98-107); Estimated GFR 65.06 (mL/min/1.73m2); Glucose 101 mg/dL (74-106); Potassium 4.5 mmol/L (3.5-5.1); Sodium 142 mmol/L (136-145)
[2024-07-25 14:57] LABS: Testosterone, Total 7.8 ng/dL (240-950)
== END 2024-07-19 03:41 | disposition home or self-care (01) ==
PROVIDERS: Internal Medicine; PCP Nurse Practitioner Adult Health; Visit Provider Nurse Practitioner
DX: C61 Malignant neoplasm of prostate (principal)
CPT/HCPCS: 36415; 80053; 84153; 84403; 85025

== ENCOUNTER 2024-08-12 00:28 | Outpatient (CLI) | payer MEDICARE, BC, SELFPAY ==
--- NOTE | 2024-08-12 07:15 | DI.RAD_ITS ---
Exam(s) XR CHEST 2V PA LATERAL EXAM: XR CHEST 2V PA LATERAL CLINICAL HISTORY: ? acute process,acute sinusitis,reactive airway disease,cough,s/p chemo,. TECHNIQUE: 2D digital imaging was performed. COMPARISON: No exams were available for comparison FINDINGS: 2 views: Heart size is normal. The mediastinum is not widened. Right lung is clear. In the left lower lobe there is vertical thin atelectatic scar line noted in th e posterior basal segment left lower lobe. No confluent infiltrates and no pleural effusions. No pu lmonary edema IMPRESSION: Scarring versus platelike atelectasis in the left lower lobe/left lung base. No pleural effusions. DATA REPOSITORY: RADIATION DOSE DELIVERED:
== END 2024-08-12 00:48 ==
LOC: DI 00:28
PROVIDERS: PCP Nurse Practitioner Adult Health; Visit Provider Nurse Practitioner Adult Health
DX: J01.90 Acute sinusitis, unspecified (principal); J45.901 Unspecified asthma with (acute) exacerbation; R05.9 Cough, unspecified; Z92.21 Personal history of antineoplastic chemotherapy; J98.11 Atelectasis
CPT/HCPCS: 71046

== ENCOUNTER 2024-08-18 11:45 | Outpatient (REF) | payer MEDICARE, BC, SELFPAY ==
[2024-08-18 17:25] LABS: Abs Immature Grans 0.02 10^3/uL (0.0-0.06); Absolute Basophil Count 0.03 10^3/uL (0.0-0.2); Absolute Eosinophil Count 0.01 10^3/uL (0.0-0.7); Absolute Monocyte Count 0.13 10^3/uL (0.1-0.8); Absolute Neutrophil Count 7.65 10^3/uL (1.2-6.7); Basophils % 0.3 %; Eosinophils % 0.1 %; HGB 13.2 g/dL (13.5-17.5); Immature Grans % 0.2 %; Lymphocytes % 14.2 %; MCH 28.5 pg (27.0-33.0); MCHC 32.2 % (32.0-36.0); MCV 89 fL (80-95); MPV 11.2 fL (8.0-11.0); Monocytes % 1.4 %; Neutrophils % 83.8 %; Platelet Count 345 10^3/uL (130-400); RBC 4.63 10^6/uL (4.36-5.78); RDW 15.7 % (11.8-14.1); RDW-SD 50.6 fL; WBC 9.14 10^3/uL (4.4-10.8)
[2024-08-18 17:37] LABS: Anion Gap 9.6 mmol/L (3-11); BUN 19 mg/dL (7-18); CO2 24.4 mmol/L (21.0-32.0); CREATININE 1.2 mg/dL (0.70-1.30); Calcium 9.4 mg/dL (8.5-10.1); Chloride 105 mmol/L (98-107); Estimated GFR 65.06 (mL/min/1.73m2); Glucose 147 mg/dL (74-106); NT-proBNP 41 pg/mL (<300); Potassium 4.3 mmol/L (3.5-5.1); Sodium 139 mmol/L (136-145)
[2024-08-22 13:47] LABS: Mycoplasma Pneumoniae PCR Negative (Negative); Specimen source sputum
== END 2024-08-18 11:46 | disposition home or self-care (01) ==
LOC: LBN 11:45
PROVIDERS: PCP Nurse Practitioner Adult Health; Visit Provider Nurse Practitioner Adult Health
DX: R06.02 Shortness of breath (principal); C61 Malignant neoplasm of prostate; R05.8 Other specified cough
CPT/HCPCS: 80048; 83880; 85025; 85379; 87070; 87205; 87581

== ENCOUNTER 2024-09-20 02:57 | Outpatient (CLI) | payer MEDICARE, BC, SELFPAY ==
[2024-09-20 13:53] LABS: ALT 34 U/L (16-63); AST 20 U/L (15-37); Albumin 3.2 g/dL (3.4-5.0); Alkaline Phosphatase 85 U/L (46-116); Anion Gap 8.3 mmol/L (3-11); BUN 16 mg/dL (7-18); Bilirubin, Total 0.3 mg/dL (0.2-1.0); CO2 25.7 mmol/L (21.0-32.0); CREATININE 1.4 mg/dL (0.70-1.30); Calcium 9.1 mg/dL (8.5-10.1); Chloride 105 mmol/L (98-107); Estimated GFR 54.07 (mL/min/1.73m2); Glucose 114 mg/dL (74-106); Sodium 139 mmol/L (136-145); Total Protein 7.2 g/dL (6.4-8.2)
[2024-09-22 22:31] LABS: PSA, Ultrasensitive 0.09 ng/mL (<= 6.5)
[2024-09-28 08:46] LABS: Testosterone, Total 8.5 ng/dL (240-950)
== END 2024-09-20 02:58 | disposition home or self-care (01) ==
PROVIDERS: PCP Nurse Practitioner Adult Health; Visit Provider Nurse Practitioner
DX: C61 Malignant neoplasm of prostate (principal)
CPT/HCPCS: 36415; 80053; 84153; 84403

== ENCOUNTER → 2024-09-23 11:10 | Outpatient (BNVA) | payer MEDICARE, BC, SELFPAY | PROVIDERS: PCP Nurse Practitioner Adult Health; Referring Provider Nurse Practitioner Adult Health; Visit Provider Urology | DX: C61 Malignant neoplasm of prostate (principal); N13.30 Unspecified hydronephrosis; R39.89 Other symptoms and signs involving the genitourinary system | CPT/HCPCS: 99214 ==

== ENCOUNTER 2024-12-20 00:41 | Outpatient (CLI) | payer MEDICARE, BC, SELFPAY ==
[2024-12-20 08:47] LABS: Abs Immature Grans 0.02 10^3/uL (0.0-0.06); HCT 40.0 % (40.0-50.0); HGB 12.9 g/dL (13.5-17.5); Immature Grans % 0.2 %; MCH 29.4 pg (27.0-33.0); MCHC 32.3 % (32.0-36.0); MCV 91 fL (80-95); MPV 9.8 fL (8.0-11.0); Platelet Count 253 10^3/uL (130-400); RBC 4.39 10^6/uL (4.36-5.78); RDW 12.9 % (11.8-14.1); RDW-SD 43.1 fL; WBC 8.13 10^3/uL (4.4-10.8)
[2024-12-20 11:53] LABS: ALT 27 U/L (16-63); AST 23 U/L (15-37); Albumin 3.6 g/dL (3.4-5.0); Alkaline Phosphatase 86 U/L (46-116); Anion Gap 9.7 mmol/L (3-11); BUN 14 mg/dL (7-18); Bilirubin, Total 0.4 mg/dL (0.2-1.0); CO2 26.3 mmol/L (21.0-32.0); Calcium 10.0 mg/dL (8.5-10.1); Chloride 105 mmol/L (98-107); Estimated GFR 71.77 (mL/min/1.73m2); Glucose 76 mg/dL (74-106); Potassium 4.4 mmol/L (3.5-5.1); Sodium 141 mmol/L (136-145); Total Protein 7.7 g/dL (6.4-8.2)
== END 2024-12-20 00:42 | disposition home or self-care (01) ==
LOC: LBO 00:41
PROVIDERS: PCP Nurse Practitioner Adult Health; Visit Provider Internal Medicine
DX: C61 Malignant neoplasm of prostate (principal)
CPT/HCPCS: 36415; 80053; 84153; 84403; 85025

== ENCOUNTER → 2024-12-27 08:01 | Outpatient (BNVA) | payer MEDICARE, BC, SELFPAY | PROVIDERS: PCP Nurse Practitioner Adult Health; Referring Provider Nurse Practitioner Adult Health; Visit Provider Urology | DX: C61 Malignant neoplasm of prostate (principal); N13.30 Unspecified hydronephrosis | CPT/HCPCS: 76775 ==

== ENCOUNTER 2025-03-14 01:29 | Outpatient (CLI) | payer MEDICARE, BC, SELFPAY ==
[2025-03-14 08:21] LABS: Abs Immature Grans 0.02 10^3/uL (0.0-0.06); HCT 39.0 % (40.0-50.0); HGB 12.8 g/dL (13.5-17.5); Immature Grans % 0.3 %; MCH 30.2 pg (27.0-33.0); MCHC 32.8 % (32.0-36.0); MCV 92 fL (80-95); MPV 9.9 fL (8.0-11.0); Platelet Count 239 10^3/uL (130-400); RBC 4.24 10^6/uL (4.36-5.78); RDW 12.5 % (11.8-14.1); RDW-SD 42.1 fL; WBC 5.88 10^3/uL (4.4-10.8)
[2025-03-14 08:48] LABS: ALT 21 U/L (10-49); AST 23 U/L (<34); Albumin 4.3 g/dL (3.2-5.0); Alkaline Phosphatase 97 U/L (46-116); Anion Gap 10.5 mmol/L (3-11); BUN 18 mg/dL (9-23); Bilirubin, Total 0.5 mg/dL (0.2-1.2); CO2 23.5 mmol/L (20.0-31.0); Calcium 9.7 mg/dL (8.3-10.6); Chloride 107 mmol/L (98-107); Glucose 109 mg/dL (74-106); Potassium 4.1 mmol/L (3.5-5.1); Sodium 141 mmol/L (136-145); Total Protein 7.5 g/dL (5.7-8.2)
== END 2025-03-14 01:30 | disposition home or self-care (01) ==
PROVIDERS: PCP Nurse Practitioner Adult Health; Visit Provider Nurse Practitioner
DX: C61 Malignant neoplasm of prostate (principal); C79.51 Secondary malignant neoplasm of bone
CPT/HCPCS: 36415; 80053; 84153; 84403; 85025